=== PATIENT | female | born 1990 | race Caucasian/White ===

== ENCOUNTER 2019-10-30 03:50 | Outpatient (CLI) | payer MEDICAID, SELFPAY ==
[2019-10-30 04:05] VITALS: RESP 16; TEMP 36.5
[2019-10-30 04:07] VITALS: BP 120/76; PULSE 83
[2019-10-30 04:11] VITALS: BMI 36.1
[2019-10-30 04:29] LABS: Add Urine Microscopic? NO
[2019-10-30 04:54] LABS: Bilirubin Urine Neg (NEGATIVE); Blood Urine Neg (Negative); Glucose Urine UA Norm (Normal); Ketones Urine Negative (Negative); Leukocyte Esterase Urine Negative (Negative); Nitrate Urine Negative (Negative); Protein Urine Neg (Negative); Urine Appearance Clear (CLEAR); Urine Color Yellow (Yellow); Urobilinogen Urine 1 mg/dL (Negative); pH Urine 5 (5-7)
[2019-10-30 05:05] VITALS: TEMP 36.4
[2019-10-30 05:07] VITALS: BP 111/79; PULSE 75
== END 2019-10-30 05:30 | disposition home or self-care (01) ==
LOC: OPOB 03:58 → OBGYN 05:16 → OPOB 08:00
PROVIDERS: Family Provider Family Medicine; Visit Provider Family Medicine
DX: O26.899 Other specified pregnancy related conditions, unspecified trimester (principal); Z3A.00 Weeks of gestation of pregnancy not specified; R10.9 Unspecified abdominal pain
CPT/HCPCS: 81003; 99211

== ENCOUNTER 2019-11-07 14:35 | Outpatient (CLI) | payer MEDICAID, SELFPAY ==
[2019-11-07 14:35] VITALS: BMI 35.9
--- NOTE | 2019-11-07 14:35 | US_ITS ---
WS: [id number] OB ultrasound for biophysical profile, 11/07/2019 Clinical Data: DECREASED MOVEMENT/ PT FALL Comparison: OB ultrasound, 08/07/2019 Findings: There is a single intrauterine in the vertex presentation. The heart rate is 144 beat s per minute. The placenta is posterior. The biophysical profile is 8 of 8 with normal scores for breathing, movement, posture and tone and amniotic fluid volume. US/US OB lmt w/ BPP wo NST Impression: 1. Single intrauterine in vertex presentation. 2. Biophysical profile 8 of 8. 3. heart rate 144 beats per minute.
[2019-11-07 15:14] VITALS: RESP 20; TEMP 36.9
--- NOTE | 2019-11-07 15:48 | PC.NURSE ---
US at bedside at this time
[2019-11-07 16:09] VITALS: BP 112/78; PULSE 69
[2019-11-07 16:36] LABS: Alanine Aminotransferase 39 U/L (0-33); Albumin Level 3.3 g/dL (3.5-5.2); Alkaline Phosphatase 157 IU/L (35-105); Anion Gap 19.9 (5-19); Aspartate Amino Transferase 27 U/L (0-32); Blood Urea Nitrogen 6 mg/dL (6-20); Calcium 9.7 mg/dL (8.5-10.5); Carbon Dioxide 19 mmol/L (22-29); Chloride 102 mmol/L (98-107); Globulin 3.6 g/dL (1.3-4.6); Glomerular Filtration Rate 116.6 mL/min (90-130); Glucose 113 mg/dL (65-115); Potassium 3.9 mmol/L (3.5-5.1); Sodium 137 mmol/L (136-145); Total Bilirubin 0.6 mg/dL (0.15-1.2); Total Protein 6.9 g/dL (6.6-8.7); Uric Acid 4.8 mg/dL (2.4-5.7)
[2019-11-07 16:56] LABS: Basophils % 0.3 %; Eosinophils # 0.1 10^3/uL (0.0-0.8); Eosinophils % 0.6 %; Hematocrit 33.3 % (37.0-47.0); Hemoglobin 10.8 g/dL (11.5-15.3); Lymphocytes # 1.9 10^3/uL (0.8-4.8); Lymphocytes % 22.5 %; Mean Corpuscular HGB Conc 32.4 g/dL (30.0-36.0); Mean Corpuscular Hemoglobin 29.5 pg (28.0-34.0); Mean Platelet Volume 10.5 fL (7.4-10.4); Monocytes # 0.7 10^3/uL (0.2-0.9); Monocytes % 8.5 %; Neutrophils # 5.8 10^3/uL (1.8-7.7); Neutrophils % 67.2 %; Nucleated Red Blood Cells % 0 %; Platelet Count 290 10^3/cmm (130-400); Red Blood Count 3.66 10^6/uL (4.1-5.3); White Blood Count 8.6 10^3/uL (4.0-10.0)
[2019-11-07 17:55] LABS: Urine Creatinine 134 mg/dL (28-217)
[2019-11-07 17:56] LABS: UPRO/UCREAT Ratio 0.21 mg/mg CR; Urine Protein Random 28 mg/dL
== END 2019-11-07 18:20 | disposition home or self-care (01) ==
LOC: OPOB 14:54 → OBGYN 18:14 → OPOB 11-08 07:48
PROVIDERS: Family Provider Family Medicine; Visit Provider Family Medicine
DX: O36.8190 Decreased fetal movements, unspecified trimester, not applicable or unspecified (principal); Z3A.00 Weeks of gestation of pregnancy not specified; S39.91XA Unspecified injury of abdomen, initial encounter
CPT/HCPCS: 36415; 59025; 76815; 76819; 80053; 82570; 84156; 84550; 85025; 99211; A9270

== ENCOUNTER 2019-11-14 12:23 | Outpatient (CLI) | payer MEDICAID, SELFPAY ==
--- NOTE | 2019-11-14 12:41 | US_ITS ---
WS: [id number] US OB lmt w/ BPP wo NST REASON FOR EXAM: headaches FINDINGS: Single fetus is noted in the cephalic presentation. heart rate 1 36 bpm. Good motion is seen. Amniotic fluid indices within normal limits. head measured 9.11 cm 37 weeks gestation Head circumference 32.70 cm 37 weeks 1 day gestation Femoral length 7.29 cm 37 weeks 2 days gestation Abdominal circumference 13.71 cm 37 weeks 4 days gestation. weight 32.02 g (7 lbs. 1 oz.) US/US OB lmt w/ BPP wo NST IMPRESSION: Utilizing Hadlock criteria the fetuses 39 weeks 2 days gestation weight 7 lbs. 1 oz. Viability of the fetus is seen.
[2019-11-14 12:45] VITALS: BP 122/76; PULSE 86
[2019-11-14 12:52] VITALS: BMI 35.9
[2019-11-14 13:15] VITALS: BP 122/83; PULSE 107
[2019-11-14 13:25] VITALS: BP 121/82; PULSE 97
[2019-11-14 13:35] VITALS: BP 127/81; PULSE 90
[2019-11-14 13:40] VITALS: RESP 16; TEMP 36.7
[2019-11-14 13:43] VITALS: BP 127/81; PULSE 90; RESP 16; TEMP 36.7
== END 2019-11-14 13:43 | disposition home or self-care (01) ==
LOC: OPOB 12:38 → OBGYN 13:40 → OPMS 11-17 07:36
PROVIDERS: Family Provider Family Medicine; Visit Provider Family Medicine
DX: O26.899 Other specified pregnancy related conditions, unspecified trimester (principal); Z3A.00 Weeks of gestation of pregnancy not specified; R51 Headache
CPT/HCPCS: 59025; 76815; 76819; 99211

== ENCOUNTER 2019-11-17 11:19 | Outpatient (CLI) | payer MEDICAID, SELFPAY ==
[2019-11-17 11:46] VITALS: BP 118/83; PULSE 80; RESP 16; TEMP 36.6
[2019-11-17 11:48] VITALS: BMI 36.1
[2019-11-17 12:36] VITALS: BP 0/0; BP 119/86; BP 125/81; BP 125/85; PULSE 68; PULSE 72; PULSE 81
== END 2019-11-17 12:28 | disposition home or self-care (01) ==
PROVIDERS: Family Provider Family Medicine; Visit Provider Family Medicine
DX: O24.419 Gestational diabetes mellitus in pregnancy, unspecified control (principal); Z3A.00 Weeks of gestation of pregnancy not specified
CPT/HCPCS: 59025; 99211

== ENCOUNTER 2019-11-21 15:30 | Outpatient (CLI) | payer MEDICAID, SELFPAY ==
[2019-11-21] VITALS (7 sets, daily range): BP systolic 111–140; BP diastolic 75–86; PULSE 74–91; RESP 17; TEMP 36.5; BMI 36.3
--- NOTE | 2019-11-21 15:43 | US_ITS ---
WS: [id number] BIOPHYSICAL PROFILE AND LIMITED OB. HISTORY: hypertension COMPARISON: 11/14/2019 Presentation: Vertex. Cervix: Poorly visualized. Placenta: Posterior, no previa or abruption. Grade: 1 HEART: FHR of 133BPM. Biophysical profile: Parameters are as follows: Breathin Movement: 2 Tone: 2 Fluid volume: 2 Amniotic fluid index 16.2 cm. At the 50th percentile. Largest vertical pocket of amniotic fluid 7.4 c m. 1. Biophysical profile score: 8/8. 2. Normal amniotic fluid index. 3. Posterior grade 1 placenta. US/US OB lmt w/ BPP wo NST IMPRESSION:
[2019-11-21 16:16] LABS: Basophils % 0.2 %; Eosinophils % 0.4 %; Hemoglobin 11.3 g/dL (11.5-15.3); Lymphocytes # 1.9 10^3/uL (0.8-4.8); Mean Corpuscular HGB Conc 32.3 g/dL (30.0-36.0); Mean Corpuscular Hemoglobin 29.1 pg (28.0-34.0); Mean Corpuscular Volume 90.2 fL (81-99); Mean Platelet Volume 10.8 fL (7.4-10.4); Monocytes # 0.8 10^3/uL (0.2-0.9); Monocytes % 9.4 %; Neutrophils # 5.3 10^3/uL (1.8-7.7); Neutrophils % 65.5 %; Nucleated Red Blood Cells % 0 %; Platelet Count 266 10^3/cmm (130-400); Red Blood Count 3.88 10^6/uL (4.1-5.3); Red Cell Distribution Width 14.1 % (12.1-15.1); White Blood Count 8.1 10^3/uL (4.0-10.0)
[2019-11-21 16:31] LABS: Alanine Aminotransferase 49 U/L (0-33); Albumin Level 3.6 g/dL (3.5-5.2); Alkaline Phosphatase 167 IU/L (35-105); Anion Gap 17.9 (5-19); Aspartate Amino Transferase 36 U/L (0-32); Blood Urea Nitrogen 9 mg/dL (6-20); Calcium 9.9 mg/dL (8.5-10.5); Carbon Dioxide 20 mmol/L (22-29); Chloride 101 mmol/L (98-107); Globulin 3.1 g/dL (1.3-4.6); Glucose 100 mg/dL (65-115); Potassium 3.9 mmol/L (3.5-5.1); Sodium 135 mmol/L (136-145); Total Bilirubin 0.7 mg/dL (0.15-1.2); Total Protein 6.7 g/dL (6.6-8.7); Uric Acid 6.4 mg/dL (2.4-5.7)
== END 2019-11-21 17:25 | disposition home or self-care (01) ==
LOC: OPOB 15:38 → OBGYN 17:15 → OPOB 11-22 08:34
PROVIDERS: Family Provider Family Medicine; Visit Provider Family Medicine
DX: O16.9 Unspecified maternal hypertension, unspecified trimester (principal); Z3A.00 Weeks of gestation of pregnancy not specified
CPT/HCPCS: 36415; 59025; 76815; 76819; 80053; 84550; 85025; 99211

== ENCOUNTER 2019-11-24 09:37 | Inpatient (IN) | payer MEDICAID, SELFPAY ==
[2019-11-24] VITALS (61 sets, daily range): BP systolic 0–160; BP diastolic 0–105; PULSE 52–94; RESP 15–18; TEMP 36.3–36.8; O2SAT 95–99; BMI 36.1
[2019-11-24] MEDS: lactated ringers 1,000 ML 999 ML IV ×2 (09:05→12:56)
[2019-11-24 10:06] LABS: Basophils % 0.2 %; Eosinophils % 0.4 %; Hematocrit 36.2 % (37.0-47.0); Hemoglobin 11.6 g/dL (11.5-15.3); Lymphocytes % 22.1 %; Mean Corpuscular Hemoglobin 27.8 pg (28.0-34.0); Mean Corpuscular Volume 86.8 fL (81-99); Mean Platelet Volume 12.1 fL (7.4-10.4); Monocytes # 0.7 10^3/uL (0.2-0.9); Monocytes % 7.6 %; Neutrophils # 6.2 10^3/uL (1.8-7.7); Neutrophils % 69.3 %; Nucleated Red Blood Cells % 0 %; Platelet Count 235 10^3/cmm (130-400); Red Blood Count 4.17 10^6/uL (4.1-5.3); White Blood Count 8.9 10^3/uL (4.0-10.0)
[2019-11-24 10:23] LABS: Alanine Aminotransferase 38 U/L (0-33); Albumin Level 3.2 g/dL (3.5-5.2); Alkaline Phosphatase 156 IU/L (35-105); Anion Gap 17.1 (5-19); Blood Urea Nitrogen 6 mg/dL (6-20); Calcium 10.1 mg/dL (8.5-10.5); Carbon Dioxide 20 mmol/L (22-29); Chloride 102 mmol/L (98-107); Globulin 3.9 g/dL (1.3-4.6); Glomerular Filtration Rate 143.9 mL/min (90-130); Glucose 83 mg/dL (65-115); Potassium 4.1 mmol/L (3.5-5.1); Sodium 135 mmol/L (136-145); Total Bilirubin 0.6 mg/dL (0.15-1.2); Total Protein 7.1 g/dL (6.6-8.7); Uric Acid 5.2 mg/dL (2.4-5.7)
[2019-11-24] MEDS: lactated ringers 1,000 ML 125 ML IV (10:25)
[2019-11-24 10:29] LABS: Aspartate Amino Transferase 33 U/L (0-32)
[2019-11-24 10:36] LABS: Add Urine Microscopic? YES; Bilirubin Urine Neg (NEGATIVE); Blood Urine 2+ (Negative); Glucose Urine UA Norm (Normal); Ketones Urine Negative (Negative); Leukocyte Esterase Urine Negative (Negative); Nitrate Urine Negative (Negative); Protein Urine Neg (Negative); Specific Gravity, Urine 1.015 (1.005-1.030); Urine Appearance SL Hazy (CLEAR); Urine Color Yellow (Yellow); Urobilinogen Urine Norm (Negative); pH Urine 6.5 (5-7)
[2019-11-24 10:40] LABS: RBC Urine 0-4 /hpf (0-2)
[2019-11-24] MEDS: butorphanol 2 mg/mL SDV 1 mL 1 MG IVP (10:40)
[2019-11-24 10:41] LABS: Bacteria Urine 1+
[2019-11-24 10:42] LABS: Add Urine Culture? No
[2019-11-24 10:52] LABS: Urine Creatinine 89 mg/dL (28-217); Urine Protein Random 15 mg/dL
[2019-11-24 10:58] LABS: UPRO/UCREAT Ratio 0.17 mg/mg CR
--- NOTE | 2019-11-24 11:13 | PC.NURSE ---
[id number] Dunlap with anesthesia> Dr. Dunlap informed of Dr. Brower desires to perform a ceserean at 1300. Dr. Dunlap states that will be fine.
--- NOTE | 2019-11-24 12:34 | ANES.PREANE2 ---
Pre-Anesthetic Assessment Pre-Anesthetic Assessment: Height/Weight: Height 1.68 m Weight 101.605 kg Temp Pulse Resp BP 98.1 F 60 16 147/83 11/24/19 08:56 11/24/19 12:32 11/24/19 11:40 11/24/19 12:32 Preop Diagnosis: IUP Proposed Procedure: C/section (secondary) Familial anesthetic complications: none Was Beta Jossy taken within 24 hours: N/A Last intake: Intake Last Liquid Date 11/24/19 Last Liquid Time 01:00 Last Solid Date 11/23/19 Last Solid Time 18:00 Social: Social History: No alcohol and No tobacco Airway: Submandibular: WNL Cervical ROM: WNL MP: 2 History/ROS: No significant history except as noted Pulmonary: Pulmonary: Asthma (as a child) CV/HEM: CV/HEM: HTN (pre-eclampsia) : : None reported Hepatic: Hepatic: None reported GI: GI: GERD Metabolic: Metabolic: Thyroid Anesthetic Plan: ASA status: 2E Anesthesia: Anesthesia Evaluation and Regional (specify below) (spinal) Risk of > 500 ml blood loss (7ml/kg in children): Yes, adequate IV access and fluids planned Meds/Allergies Current Medications: Current Medications Generic Name Dose Route Start Last Admin Trade Name Freq PRN Reason Stop Dose Admin Butorphanol Tartra te 1 mg 11/24/19 10:33 11/24/19 10:40 Stadol IVP 1 mg DIRECTED PRN Administration PAIN Lactated Ringer's 1,000 mls @ 125 m ls/hr 11/24/19 10:00 11/24/19 10:25 Lactated Ringers IV 125 mls/hr .Q8H RONIT Administration PFSH Anesthesia Female Reproductive History: : 3 Data Anesthesia CBC & Chem 7: 11/24/19 08:50 11/24/19 08:50 Other Labs: Laboratory Results - last 48 hr 11/24/19 11/24/19 11/24/19 08:30 08:30 08:50 WBC 8.9 RBC 4.17 Hgb 11.6 Hct 36.2 L MCV 86.8 MCH 27.8 L MCHC 32.0 RDW 14.0 Plt Count 235 MPV 12.1 H Neut % (Auto) 69.3 Lymph % (Auto) 22.1 [place] % (Auto) 7.6 Eos % (Auto) 0.4 Baso % (Auto) 0.2 Neut # (Auto) 6.2 Lymph # (Auto) 2.0 [place] # (Auto) 0.7 Eos # (Auto) 0.0 Baso # (Auto) 0.0 Nucleated RBC % (auto) 0 Nucleated RBCs # 0.0 Sodium Potassium Chloride Carbon Dioxide Anion Gap BUN Creatinine GFR Calculation Glucose Uric Acid Calcium Total Bilirubin AST ALT Alkaline Phosphatase Total Protein Albumin Globulin Urine Color Yellow Urine Appearance Sl hazy Urine pH 6.5 Ur Specific [place] 1.015 Urine Protein Neg Urine Glucose (UA) Norm Urine Ketones Negative Urine Blood 2+ H Urine Nitrate Negative Urine Bilirubin Neg Urine Urobilinogen Norm Ur Leukocyte Esterase Negative Urine RBC 0-4 H Urine WBC 5-10 H Ur Squamous Epith Cells 5-10 H Urine Bacteria 1+ H U Random Total Protein 15 Urine Creatinine 89 Protein/Creatinin Ratio 0.17 11/24/19 08:50 WBC RBC Hgb Hct MCV MCH MCHC RDW Plt Count MPV Neut % (Auto) Lymph % (Auto) [place] % (Auto) Eos % (Auto) Baso % (Auto) Neut # (Auto) Lymph # (Auto) [place] # (Auto) Eos # (Auto) Baso # (Auto) Nucleated RBC % (auto) Nucleated RBCs # Sodium 135 L Potassium 4.1 Chloride 102 Carbon Dioxide 20 L Anion Gap 17.1 BUN 6 Creatinine 0.5 GFR Calculation 143.9 H Glucose 83 Uric Acid 5.2 Calcium 10.1 Total Bilirubin 0.6 AST 33 H ALT 38 H Alkaline Phosphatase 156 H Total Protein 7.1 Albumin 3.2 L Globulin 3.9 Urine Color Urine Appearance Urine pH Ur Specific [place] Urine Protein Urine Glucose (UA) Urine Ketones Urine Blood Urine Nitrate Urine Bilirubin Urine Urobilinogen Ur Leukocyte Esterase Urine RBC Urine WBC Ur Squamous Epith Cells Urine Bacteria U Random Total Protein Urine Creatinine Protein/Creatinin Ratio Cardiac Studies: No Data to Display
[2019-11-24] MEDS: famotidine 20 mg/2 mL INJ IVP (12:57)
[2019-11-24] MEDS: metoclopramide 5 mg/mL SDV 2 mL 10 MG IVP (12:57)
[2019-11-24] MEDS: citric acid-sodium citrate 30 mL UDC PO (12:58)
[2019-11-24] MEDS: clindamycin 900 MG/50 ML PREMIX 100 MG IV (13:02)
--- NOTE | 2019-11-24 13:08 | PM.HP ---
Providers/Chief Complaint Admitting Physician: Jaime Brower MD Chief Complaint: Contractions History of Present Illness Nicolasa Ny is a 29 year old G3, P1 at 38.5 weeks gestation by LMP consistent with 6-week ultrasound. Her is complicated by history of hemorrhage, prior low-transverse section, Rh-, hypothyroidism, anxiety, history of hyperemesis gravidarum, first trimester bleeding, elevated 1 hour GTT with normal 3-hour GTT, now with preeclampsia without severe features The patient presented to labor and delivery triage due to worsening contractions. She has been having overnight and stated that she was feeling them every 1 to 2 minutes. They were becoming more painful so she presented to labor and delivery triage for further evaluation. In triage she was found to be having contractions every 7 to 8 minutes, with more irritability in between these. She was found to have blood pressures in the 140s and 150s systolic. The patient had previously had a 24-hour urine protein that was borderline at 298 on 11/10/2019. The patient has not had any elevated blood pressures until today. The patient is having mild headaches with some visual disturbances. She is also been nauseous. Because of these changes, this is most consistent with preeclampsia. For this reason she has been admitted and we will proceed with a repeat low-transverse section. The patient's cervix is closed upon admission. The patient denies any chest pains, shortness of breath, fevers, cough, sore throat, diarrhea, constipation, dysuria, leakage of fluid and vaginal bleeding. Medications/Allergies Allergies Allergy/AdvReac Type Severity Reaction Status Date / Time acetaminophen [From Vicodin] Allergy ADR-Nausea Verified 11/24/19 11:26 cefaclor [From Ceclor] Allergy ALGY-Rash Verified 11/14/19 12:56 hydrocodone [From Vicodin] Allergy ADR-Nausea Verified 11/24/19 11:26 latex Allergy ALGY-Rash Verified 10/30/19 04:21 Penicillins Allergy ALGY-Rash Verified 10/30/19 04:21 Sulfa (Sulfonamide Allergy ALGY-Rash Verified 10/30/19 04:21 Antibiotics) PFSH Acute PFSH: Surgical History (Updated 11/24/19 @ 14:57 by Jaime Brower MD) History of section Family History (Updated 11/24/19 @ 14:59 by Jaime Brower MD) Father Diabetes Hypertension Mother Thyroid disease Hypertension Female Reproductive History: : 3 Vitals/I&O/Wt Last Vital Signs Temp 98.1 F 11/24/19 08:56 Pulse 57 L 11/24/19 12:46 Resp 16 11/24/19 11:40 BP 150/86 11/24/19 12:46 11/23/19 11/24/19 11/24/19 22:59 06:59 14:59 Intake Total 1000 / 1000 Balance 1000 / 1000 Weight last 48 hrs Weight 224 lb Physical Exam Narrative: EXAM NARRATIVE: General: Alert and oriented x3 Eyes: Pupils equal round and reactive to light and accommodation Mouth: Mucous membranes moist, pharynx non-erythematous Cardiac: Regular rate and rhythm without murmurs Lungs: Clear to auscultation bilaterally without wheezes, crackles or rhonchi Abdomen: Soft, no significant tenderness outside of contractions, fundus consistent with gestational age Extremities: Trace edema in the bilateral lower extremities Neuro: Reflexes are 1+ in the bilateral lower extremities. Data : 11/24/19 08:50 11/24/19 08:50 A&P Assessment and plan (1) Intrauterine : Status: Acute Code(s): Z34.90 - Encounter for supervision of normal , unspecified, unspecified trimester (2) Rh negative status during : Status: Acute Code(s): O26.899 - Other specified related conditions, unspecified trimester; Z67.91 - Unspecified blood type, Rh negative (3) Hypothyroidism: Status: Acute Code(s): E03.9 - Hypothyroidism, unspecified Additional A&P Information The patient is showing signs of preeclampsia without severe features, however with blood pressures that are starting to increase quickly as they were normal in clinic earlier this week. Because of this we will proceed with a repeat low transverse section. The patient will be placed on IV magnesium for seizure prophylaxis. The patient has an allergy to beta lactams, so we will give her clindamycin for surgical prophylaxis. All questions were answered. The patient is in agreement with the current plan of care. Attestations Medical Necessity Statement*: The patient will be here greater than 2 midnights due to intrapartum and management of labor and delivery with complications of preeclampsia without severe features. Coding Level of Care Code Acute Ladies' Locker Room Attendant for Chg Fwd Diagnoses Intrauterine Z34.90 Rh negative status during O26.899; Z67.91 Hypothyroidism E03.9
[2019-11-24] MEDS: magnesium sulfate premix 4 GM/100 ML PREMIX IV (13:30)
[2019-11-24] MEDS: magnesium sulfate premix 20 GM/500 ML BAG IV (13:55)
[2019-11-24 14:55] LABS: Magnesium 3.8 mg/dL (1.7-2.3)
--- NOTE | 2019-11-24 15:00 | P.OP_ITS ---
Operative Report Date of procedure: November 24, 2019 Pre-op Diagnosis: Repeat low transverse section Pre-op Diagnosis: 1. Intrauterine at 38.5 weeks gestation 2. History of low transverse section 3. Rh- 4. Hypothyroidism 5. Anxiety 6. Elevated 1 hour GTT with normal 3-hour GTT 7. Preeclampsia without severe features Nicolasa Ny is a 29 year old G3, P1 at 38.5 weeks gestation by LMP consistent with 6-week ultrasound. Her is complicated by history of hemorrhage, prior low-transverse section, Rh-, hypothyroidism, anxiety, history of hyperemesis gravidarum, first trimester bleeding, elevated 1 hour GTT with normal 3-hour GTT, now with preeclampsia without severe features Post-op Diagnosis: 1. Intrauterine status post repeat low transverse section at 38.5 weeks gestation 2. History of low transverse section 3. Rh- 4. Hypothyroidism 5. Anxiety 6. Elevated 1 hour GTT with normal 3-hour GTT 7. Preeclampsia without severe features 8. Delivery of healthy female weighing 8 pounds 8 ounces with Apgars of 9 and 9 9. Intact placenta with central umbilical cord insertion site. Post-op Findings: 1. Delivery of healthy infant female weighing 8 pounds 8 ounces with Apgars of 9 and 9 2. Intact placenta with central umbilical cord insertion site Procedure Done: Repeat low transverse section Specimens removed/disposition: Placenta discarded Pathology: none sent Surgeon: Jaime Brower MD Anesthesia: Epidural (Spinal) Estimated blood loss (mL): 700 Urine output (mL): 1,000 Complications: None Condition: stable Brief History: The patient presented to labor and delivery triage due to worsening contractions. She has been having contractions overnight and stated that she was feeling them every 1 to 2 minutes. They were becoming more painful so she presented to labor and delivery triage for further evaluation. In triage she was found to be having contractions every 7 to 8 minutes, with more irritability in between these. She was found to have blood pressures in the 140s and 150s systolic. The patient had previously had a 24-hour urine protein that was borderline at 298 on 11/10/2019. The patient has not had any elevated blood pressures until today. The patient is having mild headaches with some visual disturbances. She is also been nauseous. Because of these changes, this is most consistent with preeclampsia. For this reason she has been admitted and we will proceed with a repeat low-transverse section. The patient's cervix is closed upon admission. Procedure: After informed consent was obtained, the patient was taken to the operating room and the patient was prepped and draped in normal sterile fashion in a dorsal supine position. A spinal epidural was placed and adequate anesthesia was confirmed. At 1325 on 11/24/2019, a Pfannenstiel skin incision was made and carried through to the underlying layer of fascia using a scalpel. The fascial incision was then extended laterally using curved Mayos. The fascia was then grasped with [place] clamps and the underlying rectus muscles were disse cted off taking care to avoid injury to the underlying tissues. The peritoneum was entered bluntly with one digit. It was then bluntly. The bladder blade was placed and the vesicouterine peritoneum was well below the lower uterine segment of the uterus. The uterine incision was made in the lower uterine segment in a transverse fashion with the scalpel at 1329. The amniotic membrane was entered bluntly and a large amount of clear fluid was noted. The 's head delivered atraumatically without difficulty at 1330 on 11/24/2019. There was no nuchal cord. The mouth and nose were suctioned. The rest of the infant delivered without difficulty. The was crying immediately upon delivery. The cord was clamped and cut and the infant was handed to the awaiting pediatric nurses. The placenta was then manually expressed. The uterus was then exteriorized from the abdomen and a wet lap was used to clear the uterus of clots and debris. The bladder blade was reinserted and the uterine incision was closed using 0 chromic in a running locking fashion. A second layer of the same suture was used in the same manner. Excellent hemostasis was obtained. Next the posterior cul-de-sac was inspected and was cleared of any blood. The uterus was then placed back into the abdomen. The gutters were cleared of any further clots and debris and the uterine incision was again inspected and hemostasis was noted. The subfascial tissue was inspected for hemostasis. The peritoneum was re-approximated using 2-0 plain in a running fashion. The fascia was then re-approximated using 0 Vicryl in a running fashion. The subcutaneous tissue was inspected for hemostasis. Naomi's fascia was then re-approximated using 3-0 plain in a running fashion. Good hemostasis was noted. The subcutaneous tissue was then re-approximated using a subcuticular stitch with 4- 0 Vicryl. Steri-Strips were then placed to re-approximate the skin layer. The patient tolerated the procedure well and was recovered in stable condition. Estimated blood loss was 700 mL. Urine in the Atkins catheter was clear. Currently both the mother and infant are doing very well.
[2019-11-24] MEDS: dextrose 5%-lactated ringers 1,000 ML 125 ML IV ×2 (15:41→23:07)
[2019-11-24] MEDS: ferrous sulfate EC 325 mg Tablet PO (18:33)
[2019-11-24] MEDS: docusate sodium 100 mg Capsule PO (18:33)
[2019-11-24] MEDS: famotidine 20 mg Tablet PO (18:33)
[2019-11-24] MEDS: lanolin oint 7 gm 1 APPLIC TOPICAL (18:34)
[2019-11-25] VITALS (18 sets, daily range): BP systolic 98–121; BP diastolic 62–79; PULSE 74–90; RESP 15–18; TEMP 36.6–36.9; O2SAT 95–98
[2019-11-25 03:57] LABS: Hematocrit 32.4 % (37.0-47.0); Hemoglobin 10.5 g/dL (11.5-15.3); Mean Corpuscular HGB Conc 32.4 g/dL (30.0-36.0); Mean Corpuscular Hemoglobin 29.1 pg (28.0-34.0); Mean Corpuscular Volume 89.8 fL (81-99); Mean Platelet Volume 10.8 fL (7.4-10.4); Platelet Count 225 10^3/cmm (130-400); Red Blood Count 3.61 10^6/uL (4.1-5.3); Red Cell Distribution Width 14.2 % (12.1-15.1); White Blood Count 10.6 10^3/uL (4.0-10.0)
[2019-11-25] MEDS: magnesium sulfate premix 20 GM/500 ML BAG IV (07:52)
[2019-11-25] MEDS: dextrose 5%-lactated ringers 1,000 ML 100 ML IV (07:53)
[2019-11-25] MEDS: ferrous sulfate EC 325 mg Tablet PO (07:54)
[2019-11-25] MEDS: prenatal vitamin Capsule 1 CAP PO (07:54)
--- NOTE | 2019-11-25 08:30 | PM.PN ---
Subjective Subjective: Interval history: Patient is doing well at this time. She is currently on IV magnesium 1 g/h. She is feeling less nauseous, her headache is improving, her pain is doing well with current meds. Her bleeding has been decreasing well. The patient feels significantly better compared to yesterday. Vitals/I&O/Wt Last Vital Signs Temp 98 F 11/25/19 08:00 Pulse 82 11/25/19 08:00 Resp 16 11/25/19 08:00 BP 105/69 11/25/19 08:00 Pulse Ox 97 11/25/19 08:00 11/24/19 11/25/19 11/25/19 22:59 06:59 14:59 Intake Total 1757.082 / 4872.082 1467.082 / 6339.164 146.251 / 146.251 Output Total 2730 / 2805 1630 / 4435 350 / 350 Balance -972.918 / 2067.082 -162.918 / 1904.164 -203.749 / -203.749 Weight last 48 hrs Weight 224 lb Physical Exam Narrative: EXAM NARRATIVE: General: Alert and oriented x3 Cardiac: Regular rate and rhythm without murmurs Lungs: Clear to auscultation bilaterally without wheezes, crackles or rhonchi Abdomen: Soft, mild diffuse tenderness. Fundus is firm and 1 cm below the umbilicus. The incision is clean and dry without signs of infection or dehiscence. Extremities: Trace edema in the bilateral lower extremities. Bilateral lower extremity DTRs are brisk. Urinary Catheter Management^: Latex Free: Cath Placed During This Visit: yes Urethral Indwelling: Yes Reason for Continuing Indwelling Catheter: Accurate Measurement of Urinary Output in Critically Ill Patients Urinary Catheter Date of Insertion: 11/24/19 Urinary Catheter Time of Insertion: 13:15 Data : 11/25/19 03:23 11/24/19 08:50 A&P Additional A&P Information The patient is doing well at this time. She is currently on 1 g/h of IV magnesium. She is feeling much better and her blood pressures have decreased well. Her urine output has been very good as well. We will continue the IV magnesium for 24 hours and if she is continuing to do well, we will plan to discontinue the magnesium at that time. The patient is currently doing well in terms of pain. We can proceed with current orders. The patient's bleeding is decreasing well. She is tolerating liquids by mouth. We will advance her diet to a full diet after she is off the magnesium. All questions have been answered. Routine post care has been discussed. We will follow to see how she does over the next 24 hours and possibly discharge home at 48 hours if she continues to do well. Attestations Medical Necessity Statement*: The patient will be here for greater than 2 midnights due to routine intrapartum and management of section with preeclampsia without severe features. Coding Level of Care Code Acute Director Of Regulatory Affairs for Carlene Castro
[2019-11-25] MEDS: famotidine 20 mg Tablet PO ×2 (09:15→17:43)
[2019-11-25] MEDS: thyroid 60 mg Tablet PO (09:15)
[2019-11-25] MEDS: docusate sodium 100 mg Capsule PO ×2 (09:15→17:43)
[2019-11-25 12:54] LABS: Magnesium Level (OB Only) 3.8 mg/dL (5.0-7.5)
--- NOTE | 2019-11-25 12:57 | PC.NURSE ---
Received report from Genoveva Peralta RN at [address] Brower gave her orders not to call with magnesium level unless it is over 7. Robina Panda RN
[2019-11-25] MEDS: oxyCODONE-APAP 5-325 mg Tablet PO (21:27)
[2019-11-26 04:46] VITALS: BP 101/66; PULSE 63; RESP 18; O2SAT 96
[2019-11-26] MEDS: thyroid 60 mg Tablet PO (08:47)
[2019-11-26] MEDS: prenatal vitamin Capsule 1 CAP PO (08:47)
[2019-11-26] MEDS: docusate sodium 100 mg Capsule PO (08:47)
[2019-11-26] MEDS: famotidine 20 mg Tablet PO (08:47)
[2019-11-26 10:30] VITALS: BP 129/76; PULSE 86; RESP 18; TEMP 36.7; O2SAT 96
--- NOTE | 2019-11-26 11:11 | PM.DCS ---
Discharge Providers Date of Admission: 11/24/19 09:37 Date of Discharge: November 26, 2019 Attending Provider at Admission: Jaime Brower MD Attending Provider at Discharge: Jaime Brower MD Diagnoses at Discharge Discharge Diagnosis (1) Intrauterine : Status: Acute (2) Rh negative status during : Status: Acute (3) Hypothyroidism: Status: Acute Other Information Additional DC diagnoses/information: 1. Intrauterine status post repeat low transverse section at 38.5 weeks gestation 2. History of low transverse section 3. Rh- 4. Hypothyroidism 5. Anxiety 6. Elevated 1 hour GTT with normal 3-hour GTT 7. Preeclampsia without severe features 8. Delivery of healthy infant female weighing 8 pounds 8 ounces with Apgars of 9 and 9 9. Intact placenta with central umbilical cord insertion site. Reason for Visit Reason for Visit: Reason For Visit: Contractions Hospital Course Hospital Course: The patient presented to labor and delivery triage due to worsening contractions. She has been having contractions overnight and stated that she was feeling them every 1 to 2 minutes. They were becoming more painful so she presented to labor and delivery triage for further evaluation. In triage she was found to be having contractions every 7 to 8 minutes, with more irritability in between these. She was found to have blood pressures in the 140s and 150s systolic. The patient had previously had a 24-hour urine protein that was borderline at 298 on 11/10/2019. The patient had not had any elevated blood pressures until the day of admission. The patient was having mild headaches with some visual disturbances. She was also nauseous. Because of these changes, this is most consistent with preeclampsia. For this reason she was admitted and we proceeded with a repeat low-transverse section. The patient's cervix was closed upon admission. The patient had a repeat low transverse section and had no complications. She was started on IV magnesium and continued with this for 24 hours. The patient did not have any concerning blood pressures during this timeframe. The patient's symptoms gradually improved after delivery and currently she denies any nausea, vomiting, headaches, visual disturbances. She is ambulating, voiding, passing gas and tolerating food by mouth. Her pain is well controlled with current medications. Physical Exam Narrative: EXAM NARRATIVE: General: Alert and oriented x3 Cardiac: Regular rate and rhythm without murmurs Lungs: Clear to auscultation bilaterally without wheezes, crackles or rhonchi Abdomen: Soft, mild diffuse tenderness with moderate tenderness over the uterus. Fundus is firm and 2 cm below the umbilicus. Incision is clean and dry without signs of infection or dehiscence. Extremities: +1 pitting edema Urinary Catheter Management^: Latex Free: Cath Placed During This Visit: yes, but has since been removed by the nurse Urethral Indwelling: Yes Reason for Continuing Indwelling Catheter: Accurate Measurement of Urinary Output in Critically Ill Patients Urinary Catheter Date of Insertion: 11/24/19 Urinary Catheter Time of Insertion: 13:15 Date Urinary Catheter Removed: 11/25/19 Time Urinary Catheter Discontinued: 15:30 Discharge Data Data Completed and Pending: Labs from last 24 hours 11/25/19 12:22 Magnesium 3.8 L* Vitals: Last Vital Signs Temp 98.1 F 11/26/19 10:30 Pulse 86 11/26/19 10:30 Resp 18 11/26/19 10:30 BP 129/76 11/26/19 10:30 Pulse Ox 96 11/26/19 10:30 Discharge Plan Discharge Patient Disposition: Home, Self-Care Condition: Good Prescriptions: New oxycodone-acetaminophen 5-325 mg Tablet 1 tab PO Q6H PRN (Reason: Moderate To Severe Pain) Qty: 15 RF: 0 ibuprofen 800 mg Tablet 800 mg PO TID Qty: 60 RF: 0 ferrous sulfate 325 mg (65 mg iron) Tablet,Delayed Release (Dr/Ec) 325 mg PO BIDWM 15 Days Qty: 30 RF: 0 Continued Vitamin 27 mg iron- 800 mcg Tablet 1 tab PO DAILY RF: 0 famotidine [Pepcid] 20 mg Tablet 20 mg PO BID RF: 0 thyroid (pork) [CARGO CHECKER Thyroid] 60 mg Tablet 60 mg PO DAILY RF: 0 Discharge Orders: Discharge Order (Routine); Ordered 11/26/19 Ordered By: Jaime Brower Referrals: Jaime Brower MD [Family Provider] - 11/28/19 (Please schedule an appointment for this Wednesday as well as an appointment for 2 weeks and 6 weeks .) Discharge Diet: Regular Discharge Activity: Limit activity as instructed Activity Restrictions/Additional Instructions: Do not lift anything heavier than your in the car seat for the first 3 weeks, then gradually increase. If you have any concern that there is infection in your incision site, please seek immediate medical care. Nothing per vagina for 6 weeks. No baths or swimming for 6 weeks. Okay to shower. Discharge Attestations Time Spent in Discharge Care*: greater than 30 min Specific Discharge Activities: Specific discharge activities: educating patient, documenting/other paperwork and evaluating patient/reviewing data Quality Metrics Clinical Quality Measures During this hospital stay, did patient experience: None Coding Level of Care Code Acute Hydrometallurgical Engineer for Chg Fwd Diagnoses Intrauterine Z34.90 Rh negative status during O26.899; Z67.91 Hypothyroidism E03.9
[2019-11-26 14:25] VITALS: BP 109/72; PULSE 67; RESP 18; TEMP 36.8; O2SAT 98
== END 2019-11-26 15:50 | disposition home or self-care (01) | DRG 788 ==
LOC: OBGYN 11-26 11:11 → OPOB 11-27 07:53
PROVIDERS: Admitting Provider Family Medicine; Family Provider Family Medicine; Visit Provider Family Medicine
PROC: 10D00Z1 Extraction of Products of Conception, Low, Open Approach (ICD-10-PCS; CPT 59514; principal; 2019-11-24 13:25)
DX: O14.04 Mild to moderate pre-eclampsia, complicating childbirth (principal); O34.211 Maternal care for low transverse scar from previous cesarean delivery; N85.8 Other specified noninflammatory disorders of uterus; Z3A.38 38 weeks gestation of pregnancy; Z37.0 Single live birth; O99.284 Endocrine, nutritional and metabolic diseases complicating childbirth; E03.9 Hypothyroidism, unspecified; O99.344 Other mental disorders complicating childbirth; F41.9 Anxiety disorder, unspecified
CPT/HCPCS: 12345; 36415; 51702; 59025; 59409; 80053; 81001; 82570; 83735; 84156; 84550; 85025; 85027; 96374; 96375; 99211; J0595; J2274; J2370; J2405; J2590; J2765; J3475; J3490; J7030

== ENCOUNTER 2020-01-30 15:50 | Outpatient (CLI) | payer MEDICAID, SELFPAY ==
--- NOTE | 2020-01-30 15:00 | US_ITS ---
WS: [id number] Examination: Ultrasound of the right breast HISTORY: Patient has had 3 rounds of antibiotics for mastitis with no results. Findings: At the 3:00 position is a mass defect thickened wall measures 3.54 x 3.91 x 3.63 cm. This a ppears to be a breast abscess with thickened purulent changes in the abscess. We recommend surgical consultation. US/US breast RT complete [id number] IMPRESSION: A large mass defect at the 3:00 position consistent with abscess fo rmation. The attending physician was called and the case discussed. BI-RADS 3 probably benign. Recommend surgical consultation.
== END 2020-01-30 15:51 | disposition home or self-care (01) ==
LOC: RAD 15:53
PROVIDERS: Family Provider Family Medicine; Visit Provider Registered Nurse
DX: N61.0 Mastitis without abscess (principal); N61.1 Abscess of the breast and nipple; N63.15 Unspecified lump in the right breast, overlapping quadrants
CPT/HCPCS: 76641

== ENCOUNTER 2020-01-30 19:09 | Observation (INO) | payer MEDICAID, SELFPAY ==
[2020-01-30 19:17] VITALS: BP 100/72; PULSE 96; RESP 16; TEMP 36.4; O2SAT 98; BMI 34.0
--- NOTE | 2020-01-30 20:22 | ED_ITS ---
HPI - Skin/Abscess/Foreign Bdy General: Chief complaint: General Medical Stated complaint: breast lump Time Seen by Provider: 01/30/20 20:09 Source: patient Mode of arrival: ambulatory Limitations: no limitations History of Present Illness: HPI narrative: Patient is a very nice 29-year-old female who presents to ED today with complaints of a right breast abscess. Patient states several weeks ago she was diagnosed with mastitis and has been on a round of Clindamycin and Keflex without improvement. Patient states she over that time slowly worsened. She saw her PCP today who ordered an ultrasound of her breast which showed a large abscess. She is currently on Bactrim. The PCP provider spoke to Dr. Dhaliwal who recommended patient be and admit for surgical drainage tomorrow. She has not been running fevers. MD complaint: abscess/boil Onset (ago): week(s) Tetanus up to date: yes Location: chest (R breast) Pain Consistency: constant Relieving factors: none Exacerbating factors: other (pumping/breast feeding) Context: other (breast feeding female) Associated symptoms: Reports no associated symptoms; Deny chills, fever(s), nausea or vomiting Treatments prior to arrival: antibiotic Review of Systems Const: Denies: fever, chills, body aches, fatigue or malaise Card: Denies: chest pain Resp: Denies: shortness of breath GI: Denies: abdominal pain, nausea or vomiting Musc: Denies: neck pain, back pain, extremity pain, extremity swelling, joint pain or joint swelling Skin/Breast: Reports: other (R breast abscess) Neuro: Denies: headache, numbness in extremities, weakness in extremities or changes in sensation [facility] ED PFSH: Social History Smoking and tobacco status: never smoked Physical Exam Const: COMMON NORMALS: no apparent distress, average body habitus, oriented x3, no limitations, healthy appearing, alert and well nourished Chest: OTHER: large R sided breast abscess just medial to nipple with induration and surrounding erythema Resp: COMMON NORMALS: normal respiratory effort and clear to auscultation bilaterally AUSCULTATION: clear to auscultation bilaterally Cardio: COMMON NORMALS: regular rate and regular rhythm RATE: regular rate RHYTHM: regular rhythm Neuro: COMMON NORMALS: oriented x3 SENSORIUM/ORIENTATION: Yes alert Skin: OTHER: see chest assessment Course Consultations: Consultation #1: Spoke to Dr. Dhaliwal who will admit the patient under his service to observation with plan for OR drainage tomorrow. Recommended Nafcillin IV antibiotics however pharmacy states this medication is out of stock so recommended IV clindamycin. Vital Signs: Vital signs: Vital Signs Temperature 97.5 F L 01/30/20 19:17 Pulse Rate 96 01/30/20 19:17 Respiratory Rate 18 01/30/20 21:20 Blood Pressure 100/72 01/30/20 19:17 Pulse Oximetry 98 01/30/20 21:20 MDM - Skin/Abscess/Foreign Bdy Lab Data: Labs: Lab Results 01/30/20 01/30/20 01/30/20 Range/Units 20:21 20:21 20:21 WBC 12.3 H (4.0-10.0) 10^3/ uL RBC 4.09 L (4.1-5.3) 10^6/u L Hgb 11.7 (11.5-15.3) g/dL Hct 37.1 (37.0-47.0) % MCV 90.7 (81-99) fL MCH 28.6 (28.0-34.0) pg MCHC 31.5 (30.0-36.0) g/dL RDW 14.2 (12.1-15.1) % Plt Count 404 H (130-400) 10^3/c mm MPV 9.1 (7.4-10.4) fL Neut % (Auto) 71.1 % Lymph % (Auto) 16.2 % [place] % (Auto) 8.6 % Eos % (Auto) 2.7 % Baso % (Auto) 0.4 % Neut # (Auto) 8.8 H (1.8-7.7) 10^3/u L Lymph # (Auto) 2.0 (0.8-4.8) 10^3/u L [place] # (Auto) 1.1 H (0.2-0.9) 10^3/u L Eos # (Auto) 0.3 (0.0-0.8) 10^3/u L Baso # (Auto) 0.1 (0.0-0.1) 10^3/u L Nucleated RBC % (a uto) 0 % Nucleated RBCs # 0.0 /100WBC Sodium 139 (136-145) mmol/L Potassium 4.2 (3.5-5.1) mmol/L Chloride 100 (98-107) mmol/L Carbon Dioxide 27 (22-29) mmol/L Anion Gap 16.2 (5-19) BUN 18 (6-20) mg/dL Creatinine 0.8 (0.5-0.9) mg/dL GFR Calculation 83.7 L (90-130) mL/min Glucose 87 (65-115) mg/dL Calculated Osmolal ity 284 L (285-295) mOsm/k g Lactic Acid 0.6 (0.5-2.2) mmol/L Calcium 9.7 (8.5-10.5) mg/dL Magnesium 2.4 H (1.7-2.3) mg/dL Total Bilirubin 0.2 (0.15-1.2) mg/dL AST 17 (0-32) U/L ALT 24 (0-33) U/L Alkaline Phosphata se 142 H (35-105) IU/L Total Protein 7.9 (6.6-8.7) g/dL Albumin 4.3 (3.5-5.2) g/dL Globulin 3.6 (1.3-4.6) g/dL HCG, Qual (Negative) /02/13 Range/Units 20:21 WBC (4.0-10.0) 10^3/ uL RBC (4.1-5.3) 10^6/u L Hgb (11.5-15.3) g/dL Hct (37.0-47.0) % MCV (81-99) fL MCH (28.0-34.0) pg MCHC (30.0-36.0) g/dL RDW (12.1-15.1) % Plt Count (130-400) 10^3/c mm MPV (7.4-10.4) fL Neut % (Auto) % Lymph % (Auto) % [place] % (Auto) % Eos % (Auto) % Baso % (Auto) % Neut # (Auto) (1.8-7.7) 10^3/u L Lymph # (Auto) (0.8-4.8) 10^3/u L [place] # (Auto) (0.2-0.9) 10^3/u L Eos # (Auto) (0.0-0.8) 10^3/u L Baso # (Auto) (0.0-0.1) 10^3/u L Nucleated RBC % (a uto) % Nucleated RBCs # /100WBC Sodium (136-145) mmol/L Potassium (3.5-5.1) mmol/L Chloride (98-107) mmol/L Carbon Dioxide (22-29) mmol/L Anion Gap (5-19) BUN (6-20) mg/dL Creatinine (0.5-0.9) mg/dL GFR Calculation (90-130) mL/min Glucose (65-115) mg/dL Calculated Osmolal ity (285-295) mOsm/k g Lactic Acid (0.5-2.2) mmol/L Calcium (8.5-10.5) mg/dL Magnesium (1.7-2.3) mg/dL Total Bilirubin (0.15-1.2) mg/dL AST (0-32) U/L ALT (0-33) U/L Alkaline Phosphata se (35-105) IU/L Total Protein (6.6-8.7) g/dL Albumin (3.5-5.2) g/dL Globulin (1.3-4.6) g/dL HCG, Qual Negative (Negative) Discharge Plan Discharge Patient Disposition: Admitted As Inpatient Admit Provider: Manolo Dhaliwal Clinical Impression: Abscess of right breast associated with Condition: Stable Coding Level of Care Code ED Production Drilling Machine Operator for Carlene Castro
[2020-01-30 20:41] LABS: Basophils # 0.1 10^3/uL (0.0-0.1); Basophils % 0.4 %; Eosinophils # 0.3 10^3/uL (0.0-0.8); Eosinophils % 2.7 %; Hematocrit 37.1 % (37.0-47.0); Hemoglobin 11.7 g/dL (11.5-15.3); Lymphocytes % 16.2 %; Mean Corpuscular HGB Conc 31.5 g/dL (30.0-36.0); Mean Corpuscular Hemoglobin 28.6 pg (28.0-34.0); Mean Corpuscular Volume 90.7 fL (81-99); Mean Platelet Volume 9.1 fL (7.4-10.4); Monocytes # 1.1 10^3/uL (0.2-0.9); Monocytes % 8.6 %; Neutrophils # 8.8 10^3/uL (1.8-7.7); Neutrophils % 71.1 %; Nucleated Red Blood Cells % 0 %; Platelet Count 404 10^3/cmm (130-400); Red Blood Count 4.09 10^6/uL (4.1-5.3); Red Cell Distribution Width 14.2 % (12.1-15.1); White Blood Count 12.3 10^3/uL (4.0-10.0)
[2020-01-30 20:51] LABS: Lactic Sepsis W/Reflex 0.6 mmol/L (0.5-2.2)
[2020-01-30 20:53] LABS: Alanine Aminotransferase 24 U/L (0-33); Albumin Level 4.3 g/dL (3.5-5.2); Alkaline Phosphatase 142 IU/L (35-105); Anion Gap 16.2 (5-19); Aspartate Amino Transferase 17 U/L (0-32); Blood Urea Nitrogen 18 mg/dL (6-20); Calcium 9.7 mg/dL (8.5-10.5); Carbon Dioxide 27 mmol/L (22-29); Chloride 100 mmol/L (98-107); Globulin 3.6 g/dL (1.3-4.6); Glomerular Filtration Rate 83.7 mL/min (90-130); Glucose 87 mg/dL (65-115); Magnesium 2.4 mg/dL (1.7-2.3); Osmolality Calculated 284 mOsm/kg (285-295); Potassium 4.2 mmol/L (3.5-5.1); Sodium 139 mmol/L (136-145); Total Bilirubin 0.2 mg/dL (0.15-1.2); Total Protein 7.9 g/dL (6.6-8.7)
[2020-01-30 21:00] LABS: HCG, Serum Qual Negative (Negative)
[2020-01-30] MEDS: lactated ringers 1,000 ML 100 ML IV (21:18)
[2020-01-30 21:20] VITALS: RESP 18; O2SAT 98
[2020-01-30] MEDS: ondansetron 2 mg/ML SDV 2 mL 4 MG IVP (21:20)
[2020-01-30] MEDS: morphine 4 mg/mL SDV 1 mL IVP (21:20)
[2020-01-30 21:38] VITALS: BP 112/70; PULSE 84; RESP 18; O2SAT 98
[2020-01-30] MEDS: clindamycin 900 MG/50 ML PREMIX 100 MG IV (22:32)
[2020-01-31] VITALS (21 sets, daily range): BP systolic 95–125; BP diastolic 62–87; PULSE 61–83; RESP 14–20; TEMP 36.4–37.1; O2SAT 92–100
[2020-01-31] MEDS: morphine 4 mg/mL SDV 1 mL 2 MG IVP ×5 (01:19→20:42)
[2020-01-31 01:32] LABS: Basophils # 0.1 10^3/uL (0.0-0.1); Basophils % 0.4 %; Eosinophils # 0.3 10^3/uL (0.0-0.8); Eosinophils % 2.2 %; Hematocrit 36.6 % (37.0-47.0); Hemoglobin 11.6 g/dL (11.5-15.3); Lymphocytes # 2.4 10^3/uL (0.8-4.8); Lymphocytes % 20.6 %; Mean Corpuscular HGB Conc 31.7 g/dL (30.0-36.0); Mean Corpuscular Hemoglobin 28.4 pg (28.0-34.0); Mean Corpuscular Volume 89.5 fL (81-99); Mean Platelet Volume 9.5 fL (7.4-10.4); Monocytes # 0.8 10^3/uL (0.2-0.9); Neutrophils % 68.9 %; Nucleated Red Blood Cells % 0 %; Platelet Count 410 10^3/cmm (130-400); Red Blood Count 4.09 10^6/uL (4.1-5.3); Red Cell Distribution Width 14.1 % (12.1-15.1); White Blood Count 11.6 10^3/uL (4.0-10.0)
[2020-01-31 01:50] LABS: Anion Gap 16.1 (5-19); Blood Urea Nitrogen 15 mg/dL (6-20); Calcium 9.8 mg/dL (8.5-10.5); Carbon Dioxide 27 mmol/L (22-29); Chloride 99 mmol/L (98-107); Glomerular Filtration Rate 83.7 mL/min (90-130); Glucose 98 mg/dL (65-115); Osmolality Calculated 282 mOsm/kg (285-295); Potassium 4.1 mmol/L (3.5-5.1); Sodium 138 mmol/L (136-145)
--- NOTE | 2020-01-31 05:11 | PC.NURSE ---
This void was from 11 pm and was not measured.
[2020-01-31] MEDS: clindamycin 900 MG/50 ML PREMIX 100 MG IV (05:14)
[2020-01-31] MEDS: lactated ringers 1,000 ML 100 ML IV (05:14)
--- NOTE | 2020-01-31 05:33 | PM.HP ---
Providers/Chief Complaint Admitting Physician: Manolo Dhaliwal MD Primary Care Provider: Jaime Brower MD Chief Complaint: breast lump History of Present Illness Chief Complaint: Right breast pain History of present illness: Ms. Nicolasa Ny is a pleasant 29 year old female patient with history of worsening mastitis of the right breast over the past month or so, patient had an emergency November 24 and started breast-feeding her baby daughter over time started to develop swelling and pain of the right breast and was placed on couple of rounds of antibiotics and patient did not show much improvement and yesterday an ultrasound of the breast was done that showed an abscess of the right breast, Ms. Lai patient's PCP contacted me with her concerns about Ms. Ny and I recommended direct admission for the patient for IV antibiotics with the plan to perform incision and drainage today in the OR under general anesthesia. Breast specific history: Previous breast biopsies none Personal or family history of breast cancer none Age of menarche age of 9 History of menstrual cycles irregular History of control pills 7-year at least Obstetric history A0 miscarriage timesx1 Mode of delivery CS Breast-feeding history patient fed her first child for 1 month both breasts and started feeding her current daughter since delivery and she developed right breast abscess Previous mammograms/compliance not applicable Self breast examination patient is compliant with self breast examination Patient gives history of fever but no chills or nausea and vomit No history of complications related to anesthesia or bleeding Review of Systems General: Reports: 10 or more systems reviewed and unremarkable except in HPI and below Medications/Allergies Home Medications Medication Instructions Recorded Confirmed Last Taken Type Vitamin 1 tab PO DAILY 11/07/19 01/30/20 01/29/20 History thyroid (pork) [OFFSHORING MANAGER Thyroid] 60 mg PO DAILY 11/07/19 01/30/20 01/29/20 History sulfamethoxazole 800 1 tab PO BID 7 Days #14 tab 01/27/20 01/30/20 01/29/20 Rx mg-trimethoprim 160 mg tablet Allergies Allergy/AdvReac Type Severity Reaction Status Date / Time acetaminophen [From Vicodin] Allergy ADR-Nausea Verified 01/31/20 05:56 cefaclor [From Ceclor] Allergy ALGY-Rash Verified 01/31/20 05:56 hydrocodone [From Vicodin] Allergy ADR-Nausea Verified 01/31/20 05:56 latex Allergy ALGY-Rash Verified 01/31/20 05:56 Penicillins Allergy ALGY-Rash Verified 01/31/20 05:56 Sulfa (Sulfonamide Allergy ALGY-Rash Verified 01/31/20 05:56 Antibiotics) PFSH Acute PFSH: Social History Smoking and tobacco status: never smoked Female Reproductive History: Date of last menstrual period: 01/08/20 Vitals/I&O/Wt Last Vital Signs Temp 97.6 F 01/31/20 04:00 Pulse 83 01/31/20 04:00 Resp 16 01/31/20 05:20 BP 100/64 01/31/20 04:00 Pulse Ox 95 01/31/20 04:00 01/30/20 01/30/20 01/31/20 14:59 22:59 06:59 Intake Total 861.666 / 861.666 Output Total 800 / 800 Balance 61.666 / 61.666 Weight last 48 hrs Weight 211 lb Physical Exam Narrative: EXAM NARRATIVE: Patient is conscious alert oriented X3 BMI 34 Head and neck examination PERRLA no masses no cervical lymphadenopathy no jaundice Cardiac examination audible S1-S2 no murmurs no gallops no arrhythmias Chest is clear bilateral,abscence of Rhonchi or wheezes,no surgical emphysema Bilateral breast examination done in the presence of a female digital advertising analyst Surekha Presence of a large tender indurated area occupying the right lower medial quadrant of the breast with tenderness and fluctuation with presence of milk discharging from the right knee otherwise right breast examination shows no discrete masses except from fullness due to the active tissues Otherwise No clinically palpable breast masses, nipple area complex show no abnormalities bilateral, no evidence of nipple discharge except for milky discharge from bilateral nipple, no evidence of lymphadenopathy clinically palpable per bilateral axillary examination as well as supra and infraclavicular regions. Breast examination was done in sitting and supine position Abdomen nontender nondistended soft no organomegaly guarding or rigidity/no signs of peritonitis Extremities no cyanosis no clubbing no edema Data : 01/31/20 00:45 01/31/20 00:45 Micro: Microbiology 01/30/20 21:06 Blood Culture - Preliminary Blood SPECIMEN COLLECTED 01/30/20 20:21 Blood Culture - Preliminary Blood SPECIMEN COLLECTED A&P Assessment and plan (1) Abscess of right breast associated with : After thorough history physical examination and reviewing the chart and images with my personal interpretation I did breastfeeding peer counselor the patient for incision and drainage of right breast abscess under general anesthesia. Parenteral antibiotic I did discuss with the patient about the potential complications associated with the I&D including but not limited to milk fistula and she may require suppression of her for a while till the wound cavity heals. Status: Acute Attestations Medical Necessity Statement*: Observation status Time Spent in Patient Care: 16 - 35 minutes (>than 50% of time spent in counselling and/or direct pt care on unit). Coding Level of Care Code Acute Chief Communications Officer for Carlene Castro Diagnoses Abscess of right breast associated with O91.13
--- NOTE | 2020-01-31 09:43 | ANES.PREANE2 ---
Pre-Anesthetic Assessment Pre-Anesthetic Assessment: Height/Weight: Height 1.68 m Weight 95.708 kg Temp Pulse Resp BP Pulse Ox 98.6 F 76 18 103/73 97 01/31/20 09:39 01/31/20 09:39 01/31/20 09:39 01/31/20 09:39 01/31/20 09:39 Preop Diagnosis: Right breast abscess Proposed Procedure: Operation Date: 01/31/20 11:25 Proposed Procedures p Incision And Drainage right breast abscess(Right) - Manolo Dhaliwal MD Familial anesthetic complications: none Was Beta Jossy taken within 24 hours: N/A Last intake: Intake Last Liquid Date 01/31/20 Last Liquid Time 00:00 Last Solid Date 01/30/20 Last Solid Time 18:00 Social: Social History: No alcohol and No tobacco Exam: Pre-Anes Outpt Exam: alert, oriented x 3, clear to auscultation bilaterally and regular rate & rhythm Airway: Cervical ROM: WNL MP: 1 Dentition: Full Pulmonary: Pulmonary: None reported CV/HEM: CV/HEM: None reported : : None reported Hepatic: Hepatic: None reported GI: GI: None reported Metabolic: Metabolic: Thyroid Musc/skel: Musc/skel: None reported Neuropsych: Neuropsych: None reported Anesthetic Plan: ASA status: 2 Anesthesia: General Other: Abscess deeper down, so will do general Risk of > 500 ml blood loss (7ml/kg in children): No Meds/Allergies Current Medications: Current Medications Generic Name Dose Route Start Last Admin Trade Name Freq PRN Reason Stop Dose Admin Lactated Ringer's 1,000 mls @ 100 m ls/hr 01/30/20 20:45 01/31/20 05:25 Lactated Ringers IV 100 mls/hr .Q10H RONIT Infusion Morphine Sulfate 2 mg 01/31/20 00:46 01/31/20 05:20 Morphine IVP 2 mg Q2H PRN Administration SEVERE PAIN PFSH Anesthesia PFSH: Social History Smoking and tobacco status: never smoked Female Reproductive History: Date of last menstrual period: 01/08/20 Data Anesthesia CBC & Chem 7: 01/31/20 00:45 01/31/20 00:45 Other Labs: Laboratory Results - last 48 hr 01/30/20 01/30/20 01/30/20 20:21 20:21 20:21 WBC 12.3 H RBC 4.09 L Hgb 11.7 Hct 37.1 MCV 90.7 MCH 28.6 MCHC 31.5 RDW 14.2 Plt Count 404 H MPV 9.1 Neut % (Auto) 71.1 Lymph % (Auto) 16.2 [place] % (Auto) 8.6 Eos % (Auto) 2.7 Baso % (Auto) 0.4 Neut # (Auto) 8.8 H Lymph # (Auto) 2.0 [place] # (Auto) 1.1 H Eos # (Auto) 0.3 Baso # (Auto) 0.1 Nucleated RBC % (auto) 0 Nucleated RBCs # 0.0 Sodium 139 Potassium 4.2 Chloride 100 Carbon Dioxide 27 Anion Gap 16.2 BUN 18 Creatinine 0.8 GFR Calculation 83.7 L Glucose 87 Calculated Osmolality 284 L Lactic Acid 0.6 Calcium 9.7 Magnesium 2.4 H Total Bilirubin 0.2 AST 17 ALT 24 Alkaline Phosphatase 142 H Total Protein 7.9 Albumin 4.3 Globulin 3.6 HCG, Qual 01/30/20 01/31/20 01/31/20 20:21 00:45 00:45 WBC 11.6 H RBC 4.09 L Hgb 11.6 Hct 36.6 L MCV 89.5 MCH 28.4 MCHC 31.7 RDW 14.1 Plt Count 410 H MPV 9.5 Neut % (Auto) 68.9 Lymph % (Auto) 20.6 [place] % (Auto) 7.0 Eos % (Auto) 2.2 Baso % (Auto) 0.4 Neut # (Auto) 8.0 H Lymph # (Auto) 2.4 [place] # (Auto) 0.8 Eos # (Auto) 0.3 Baso # (Auto) 0.1 Nucleated RBC % (auto) 0 Nucleated RBCs # 0.0 Sodium 138 Potassium 4.1 Chloride 99 Carbon Dioxide 27 Anion Gap 16.1 BUN 15 Creatinine 0.8 GFR Calculation 83.7 L Glucose 98 Calculated Osmolality 282 L Lactic Acid Calcium 9.8 Magnesium Total Bilirubin AST ALT Alkaline Phosphatase Total Protein Albumin Globulin HCG, Qual Negative Micro: Microbiology 01/30/20 21:06 Blood Culture - Preliminary Blood SPECIMEN COLLECTED 01/30/20 20:21 Blood Culture - Preliminary Blood SPECIMEN COLLECTED Cardiac Studies: No Data to Display
--- NOTE | 2020-01-31 10:14 | PC.NURSE ---
Prn note [id number] [address] off the floor for surgery
[2020-01-31] MEDS: sodium chloride 0.9% 1,000 ML 30 ML IV (10:17)
--- NOTE | 2020-01-31 10:24 | PC.CHAP ---
Pastoral Care Encounter/Spiritual Assessment Type of Contact [] Declined cryptography teacher visit [] Patient/Family/Request visit [] Outpatient visit [] Follow-up visit [] Physician referral [] Code/Alert [] Routine visit [] Staff referral [] Actively dying [] Patient sleeping [] Family support [] [x] Out of room [] Palliative care [] [] Receiving care in room [] Pre-surgical visit [] Trauma [] Long length of stay [] ICU visit [x] Other: Relational/Emotional Strength [] Patient feels connected with others/family/visitors/staff [] Distress [] Loneliness/isolation [] Abandonment Spirituality of Patient [] Person of [place] [] Attends Temple of their [place] [] Believes in Prayer [] Reads Bible or Mu-Ism materials [] There are Spiritual issues to be addressed Leather Softener Interventions [] Prayer [] Active listening [] Non-anxious presence [] Spiritual/emotional support [] Crisis/trauma care [] Spiritual counseling [] Bereavement support [] Provided bereavement packet [] Provided Bible/devotional materials [] Provided toy/stuffed animal, coloring book to patient or family member [] Provided Communion [] Anointing/[place] [] Salvation [x] Completed spiritual assessment [] Other: Impact on Illness or Injury [] Angry [] Fearful [] Anxious [] Often cries [] Exhaustion [] Unable to work [] Unable to attend restorationism [] Unable to walk/stand [] Unable to read [] Unable to drive [] Unable to eat/drink [] Unable to sleep [] Unable to be with family [] Patient intubated [] Other: Summary Patient in surgery Time spent with patient
[2020-01-31] MEDS: lidocaine 2% INJ 20 mL INJECTION (11:38)
--- NOTE | 2020-01-31 11:40 | PM.OP ---
Operative Report Date of procedure: January 31, 2020 Pre-op Diagnosis: Right breast abscess Post-op diagnosis: same Post-op Diagnosis: Abscess cavity measures 5.5 x 3 x [address] to the breast tissues Procedure Done: Incision and drainage of right breast abscess and sharp debridement of abscess cavity Implants: Large piece of Surgicel followed by packing with Kerlix Specimens removed/disposition: Swabs for cultures and sensitivities Tissues for cultures and sensitivity Tissues for pathology Surgeon: Manolo Dhaliwal Roving Department Supervisor: technician support association Patrizia Circulating nurse Hodan Anesthesia: General Estimated blood loss (mL): 15 Complications: No immediate complication Condition: stable Disposition: observation Brief History: History of present illness: Ms. Nicolasa Ny is a pleasant 29 year old female patient with history of worsening mastitis of the right breast over the past month or so, patient had an emergency November 24 and started breast-feeding her baby daughter over time started to develop swelling and pain of the right breast and was placed on couple of rounds of antibiotics and patient did not show much improvement and yesterday an ultrasound of the breast was done that showed an abscess of the right breast, Ms. Lai patient's PCP contacted me with her concerns about Ms. Ny and I recommended direct admission for the patient for IV antibiotics with the plan to perform incision and drainage today in the OR under general anesthesia. Informed consent per chart Procedure: After identifying the patient holding area, the right breast was marked before the procedure by myself in the presence of female neonatal pediatric nurse ,patient was then taken to the operative suite, was placed in supine position, intubated by anesthesia, patient was already on IV antibiotics, right arm was tucked, prep and drape of the right pectoralis region was done under the usual sterile technique. Time-out was done verifying the patient's name/date of /planned procedure and destination after the procedure, all were in agreement After palpation of the breast abscess, aspiration with wide bore needle 14-gauge revealed the purulent discharge to guide me were to create incision. I did add oblique incision on top of the most fluctuant area , after the stab incision was created at gush of about 40-50 mL were revealed, cultures were obtained for aerobes and anaerobes, incision was extended, all loculations were broken down by the examining finger, tissues were obtained for culture as well as for histopathology from different bradshaw of the abscess cavity. Post incision and drainage ;abscess cavity measures 5.5 x 3 x [address] to the breast tissues Thorough irrigation with warm saline was done, followed by appropriate hemostasis, large piece of Surgicel was placed followed by Kerlix impregnated and lidocaine 2% was used to pack the abscess cavity Dry dressing was then applied, followed by sports bra and fluffs. Patient tolerated the procedure well, count of instruments and sponges were completed at the end of the procedure. And then patient was taken to the recovery area in stable condition. I Was present for the whole entire procedure
--- NOTE | 2020-01-31 11:55 | SUR.PHASEI ---
PT TO PACU SLEEPYING QUIETLY, VSS RT BREAST WET TO DRY DRESSING D/I MATERNITY BRA IN PLACE. GOOD RESP EFFORT NOTED
--- NOTE | 2020-01-31 12:09 | SUR.PHASEI ---
PT STATES PAIN IS BETTER NOW, PT DOZING OFF AND ON. VSS
--- NOTE | 2020-01-31 12:35 | PC.NURSE ---
Prn note Patient returned from surgery via gurney. She is alert and oriented in all aspects. Hr regular, breathing even and non labored. dressing dry and intact
--- NOTE | 2020-01-31 12:39 | SUR.PHASEI ---
1230 PT TO FLOOR UP AND WALKED TO BED PT AWAKE ALERT TALKATIVE [facility] NURSE RAÚL, BP 119/78, HR 61, SATS ON RA 95%
[2020-01-31] MEDS: acetaminophen 325 mg Tablet 650 MG PO (15:04)
[2020-01-31] MEDS: clindamycin 600 MG/50 ML PREMIX 100 MG IV (17:11)
[2020-02-01 01:09] VITALS: RESP 16
[2020-02-01] MEDS: morphine 4 mg/mL SDV 1 mL 2 MG IVP ×3 (01:09→09:36)
[2020-02-01] MEDS: clindamycin 600 MG/50 ML PREMIX 100 MG IV ×2 (01:16→09:26)
[2020-02-01 04:00] VITALS: BP 112/71; PULSE 70; RESP 18; TEMP 36.4; O2SAT 96
[2020-02-01 05:51] VITALS: RESP 16
--- NOTE | 2020-02-01 06:37 | P.PN_ITS ---
Subjective Subjective: Interval history: Patient overall feels better No acute events overnight Vitals/I&O/Wt Last Vital Signs Temp 97.5 F L 02/01/20 04:00 Pulse 70 02/01/20 04:00 Resp 16 02/01/20 05:51 BP 112/71 02/01/20 04:00 Pulse Ox 96 02/01/20 04:00 01/31/20 01/31/20 02/01/20 14:59 22:59 06:59 Intake Total 720 / 720 690 / 1410 400 / 1810 Output Total 1690 / 1690 950 / 2640 900 / 3540 Balance -970 / -970 -260 / -1230 -500 / -1730 Weight last 48 hrs Weight 211 lb Physical Exam Narrative: EXAM NARRATIVE: Patient is conscious alert oriented X3 BMI 34 Head and neck examination PERRLA no masses no cervical lymphadenopathy no jaundice Examination of the right breast wound cavity was done in the presence of female contamination consultant AUDRA Hoffmann, packing was removed bedside and repacked by me the Surgicel was taken out, presence of milk secretion at the bed of the abscess cavity, minor residual necrotic tissues but there is no pus and no surrounding cellulitis. Data : 01/31/20 00:45 01/31/20 00:45 Micro: Microbiology 01/30/20 21:06 Blood Culture - Preliminary Blood NEGATIVE TO DATE 01/30/20 20:21 Blood Culture - Preliminary Blood NEGATIVE TO DATE 01/31/20 11:23 Gram Stain - Final Breast - #1 01/31/20 11:23 Gram Stain - Final Breast - #3 A&P Assessment and plan (1) Abscess of right breast associated with : Daily wet-to-dry dressing change using mini Kerlix followed by ABD and supportive bra We will plan to discharge patient home today with home health being arranged for have the patient follow-up with me at the wound care center in 1 week due to the complexity of patient's wound. I did discuss again that she may require suppression of her for a while till the wound cavity heals, particularly in the evidence of milk secretion coming from the bed of the wound. Will defer to Dr. Brower and Ms. Lai about potential future management w regard to suppression of . Patient reports that she had Percocet before and that was convenient for her Assurance and education All questions have been answered and all concerns have been addressed to patient's satisfaction. Status: Resolved Attestations Medical Necessity Statement*: Observation status Time Spent in Patient Care: 16 - 35 minutes (>than 50% of time spent in counselling and/or direct pt care on unit) . Coding Level of Care Code Acute Ear Nose Throat Physician for Chg Fwd Diagnoses Abscess of right breast associated with O91.13
--- NOTE | 2020-02-01 06:40 | P.SS_ITS ---
Short Stay Summary Providers Date of Admit/Discharge: 02/01/20 Attending Provider: Manolo Dhaliwal MD Primary Care Provider: Jaime Brower MD Chief Complaint: breast lump HPI History of Present Illness Ms. Nicolasa Ny is a 29 year old female with history of right breast abscess that undergone incision and drainage yesterday and the plan is to discharge home today. Full history and physical per chart Review of Systems General: Reports: 10 or more systems reviewed and unremarkable except in HPI and below Home Meds/Allergies Home Medications and Allergies Home Medications Medication Instructions Recorded Confirmed Type Vitamin 1 tab PO DAILY 11/07/19 01/30/20 History thyroid (pork) [EXCHANGE SPECIALIST Thyroid] 60 mg PO DAILY 11/07/19 01/30/20 History Allergies Allergy/AdvReac Type Severity Reaction Status Date / Time acetaminophen [From Vicodin] Allergy ADR-Nausea Verified 02/01/20 09:38 cefaclor [From Ceclor] Allergy ALGY-Rash Verified 02/01/20 09:38 hydrocodone [From Vicodin] Allergy ADR-Nausea Verified 02/01/20 09:38 latex Allergy ALGY-Rash Verified 02/01/20 09:38 Penicillins Allergy ALGY-Rash Verified 02/01/20 09:38 Sulfa (Sulfonamide Allergy ALGY-Rash Verified 02/01/20 09:38 Antibiotics) PFSH Acute PFSH: Medical History Abscess of right breast associated with Surgical History History of section Family History Father Diabetes Hypertension Mother Thyroid disease Hypertension Social History Smoking and tobacco status: never smoked Female Reproductive History: Date of last menstrual period: 01/08/20 Vitals/I&O/Wt Last Vital Signs Temp 97.5 F L 02/01/20 04:00 Pulse 70 02/01/20 04:00 Resp 16 02/01/20 05:51 BP 112/71 02/01/20 04:00 Pulse Ox 96 02/01/20 04:00 01/31/20 01/31/20 02/01/20 14:59 22:59 06:59 Intake Total 720 / 720 690 / 1410 400 / 1810 Output Total 1690 / 1690 950 / 2640 900 / 3540 Balance -970 / -970 -260 / -1230 -500 / -1730 Weight last 48 hrs Weight 211 lb Physical Exam Narrative: EXAM NARRATIVE: Patient is conscious alert oriented X3 BMI 34 Head and neck examination PERRLA no masses no cervical lymphadenopathy no jaundice Examination of the right breast wound cavity was done in the presence of female side seam tender AUDRA Hoffmann, packing was removed bedside and repacked by me the Surgicel was taken out, presence of milk secretion at the bed of the abscess cavity, minor residual necrotic tissues but there is no pus and no surrounding cellulitis. Hospital Course Admission Diagnoses: Right breast abscess Discharge Summary: This is a pleasant 29 years old female patient undergone uneventful incision and drainage of symptomatic right breast abscess and biopsies were obtained, patient continued to have stable vital signs and tolerating well p.o. intake, dressing has changed today and she continue to be on parenteral antibiotics and the plan to discharge home today. With pain being under control and she was comfortable by having Percocet for pain control upon discharge. SSS Data Data Completed and Pending: Pending at discharge Category Date Time Status Abscess Culture a nd Gram Stain Rout ine Lab 01/31/20 11:23 Results Anaerobic Culture Routine Lab 01/31/20 11:23 Received Blood Culture Sta t Lab 01/30/20 21:06 Results Tissue Culture an d Gram Stain Routi ne Lab 01/31/20 11:23 Results Pathology: Surgic al [PTH] Routine Pth 01/31/20 12:06 Ordered Diagnoses at Discharge Discharge Diagnosis (1) Abscess of right breast associated with : Status: Resolved Problem details: Daily wet-to-dry dressing change in the form of packing with mini Kerlix followed by ABDs and sports bra. We will follow on cultures and sensitivities, clinically I do not believe that the patient will require more antibiotics at this time, unless she developed worsening symptoms and surrounding cellulitis Discharge Plan Discharge Patient Disposition: Home, Self-Care Condition: Stable Prescriptions: New Percocet 5-325 mg tablet 1 tab PO Q6H PRN (Reason: pain) Qty: 28 RF: 0 bromocriptine 2.5 mg tablet 2.5 mg PO DAILY Qty: 30 RF: 0 Continued sulfamethoxazole-trimethoprim [Bactrim DS] 800-160 mg tablet 1 tab PO BID 7 Days Qty: 14 RF: 0 Vitamin 27 mg iron- 800 mcg Tablet 1 tab PO DAILY RF: 0 thyroid (pork) [EXCHANGE SPECIALIST Thyroid] 60 mg Tablet 60 mg PO DAILY RF: 0 Discharge Orders: Discharge Order (Routine); Ordered 02/01/20 Ordered By: Manolo Dhaliwal Referrals: Manolo Dhaliwal MD [Physician] - 02/09/20 8:00 am (Return to wound care center in 1 week to follow-up with [facility] ) Jaime Browre MD [Primary Care Provider] - 02/08/20 9:20 am Discharge Diet: Advance as tolerated Discharge Activity: Resume usual activity Patient Instructions: Oxycodone/Acetaminophen (By mouth), Mastitis (DC), Abscess (GEN) Activity Restrictions/Additional Instructions: 1. Patient can shower voiding then the wound is already packed and covered 2. Daily packing of the wound with wet-to-dry mini Kerlix followed by ABD and sports bra 3. Up and walking as tolerated 4. Do lift heavily 5. Do not operate heavy machinery or drive while using pain medications. 6.Contact the office or return to the ER for worsening nausea vomiting fevers or chills, or noticing any redness around incision sites or discharge. 6. Advised to return to ER or contact my office if there are any signs of infection like, increasing pain, fevers, chills, redness or drainage of pus. 7. Avoid constipation being on narcotics Attestations Medical Necessity Statement*: Observation Time Spent in Patient Care*: less than 30 min Quality Metrics Clinical Quality Measures: During this hospital stay, did patient experience: None Coding Level of Care Code Acute Catalyst Unit Operator for Chg Fwd Diagnoses Abscess of right breast associated with O91.13
[2020-02-01 07:15] VITALS: BP 118/70; PULSE 62; RESP 16; TEMP 36.6; O2SAT 95
[2020-02-01 09:36] VITALS: RESP 18; O2SAT 95
--- NOTE | 2020-02-01 09:38 | PC.NURSE ---
Pt rates pain 6/10 in right breast due to having an incision.
[2020-02-01 11:10] VITALS: PULSE 62; RESP 18; TEMP 36.6; O2SAT 95
--- NOTE | 2020-02-01 11:25 | PC.NURSE ---
Discharge Discharge instructions given and educated on, Pt verbalized understanding, IV removed, tip intact, Pt tolerated well, prescriptions given to PT and educated on. Pt ambulated to vehicle with no issues.
== END 2020-02-01 11:25 | disposition home or self-care (01) ==
LOC: ER 20:09 → MEDSURG 21:02
PROVIDERS: Emergency Medicine; Admitting Provider Surgery; Emergency Provider Physician Assistant; Family Provider Family Medicine; PCP Family Medicine; Visit Provider Surgery
PROC: (CPT 10060; principal; 2020-01-31 11:25)
DX: O91.13 Abscess of breast associated with lactation (principal)
CPT/HCPCS: 10060; 12345; 36415; 80048; 80053; 83605; 83735; 84703; 85025; 87040; 87070; 87075; 87077; 87176; 87186; 87205; 88304; 96361; 96365; 96366; 96367; 96375; 99282; 99285; G0378; J1100; J2001; J2250; J2270; J2405; J2704; J3010; J3490; J7030

== ENCOUNTER 2020-02-02 10:01 | Outpatient (CLI) | payer MEDICAID, SELFPAY | END 2020-02-02 10:02 | disposition home or self-care (01) | LOC: WOUND 10:02 | PROVIDERS: Family Provider Family Medicine; PCP Family Medicine; Visit Provider Surgery | DX: T81.89XA Other complications of procedures, not elsewhere classified, initial encounter (principal); Y83.8 Other surgical procedures as the cause of abnormal reaction of the patient, or of later complication, without mention of misadventure at the time of the procedure | CPT/HCPCS: 11042; G0463 ==

== ENCOUNTER 2020-02-06 15:10 | Outpatient (CLI) | payer MEDICAID, SELFPAY | END 2020-02-06 15:11 | disposition home or self-care (01) | LOC: WOUND 15:11 | PROVIDERS: Family Provider Family Medicine; PCP Family Medicine; Visit Provider Thoracic Surgery (Cardiothoracic Vascular Surgery) | DX: Z51.89 Encounter for other specified aftercare (principal) | CPT/HCPCS: 99212 ==

== ENCOUNTER 2020-02-09 10:52 | Outpatient (CLI) | payer MEDICAID, SELFPAY | END 2020-02-09 10:53 | disposition home or self-care (01) | LOC: WOUND 10:52 | PROVIDERS: Family Provider Family Medicine; PCP Family Medicine; Visit Provider Surgery | DX: T81.89XA Other complications of procedures, not elsewhere classified, initial encounter (principal); Y83.8 Other surgical procedures as the cause of abnormal reaction of the patient, or of later complication, without mention of misadventure at the time of the procedure | CPT/HCPCS: 11042 ==

== ENCOUNTER 2020-02-16 13:27 | Outpatient (CLI) | payer MEDICAID, SELFPAY | END 2020-02-16 13:28 | disposition home or self-care (01) | PROVIDERS: Family Provider Family Medicine; PCP Family Medicine; Visit Provider Surgery | DX: T81.89XA Other complications of procedures, not elsewhere classified, initial encounter (principal); Y83.8 Other surgical procedures as the cause of abnormal reaction of the patient, or of later complication, without mention of misadventure at the time of the procedure | CPT/HCPCS: 11042 ==

== ENCOUNTER 2020-02-23 13:07 | Outpatient (CLI) | payer MEDICAID, SELFPAY | END 2020-02-23 13:08 | disposition home or self-care (01) | LOC: WOUND 13:08 | PROVIDERS: Family Provider Family Medicine; PCP Family Medicine; Visit Provider Surgery | DX: T81.89XA Other complications of procedures, not elsewhere classified, initial encounter (principal); Y83.8 Other surgical procedures as the cause of abnormal reaction of the patient, or of later complication, without mention of misadventure at the time of the procedure | CPT/HCPCS: 11042 ==

== ENCOUNTER 2020-02-24 15:56 | Emergency (ER) | payer MEDICAID, SELFPAY ==
[2020-02-24 16:01] VITALS: BP 107/75; PULSE 86; RESP 14; TEMP 36.2; O2SAT 100; BMI 33.4
--- NOTE | 2020-02-24 16:14 | W.ED.FEMALGU ---
HPI - Female Genitourinary General: Chief complaint: Vaginal Bleeding Stated complaint: abnormal period/light headed/n/v Time Seen by Provider: 02/24/20 16:10 Source: patient Mode of arrival: ambulatory Limitations: no limitations History of Present Illness: HPI Narrative: 29-year-old female who states she has heavy periods and irregular periods in the past. States that her period has been quite heavy has been passing clots. She states that she was at [employer] and felt lightheaded. She states she felt like she was going to pass out. Denies any fevers. MD elicited complaint: vaginal bleeding Onset (ago): day(s) Associated symptoms: Deny abdominal pain, headache(s) or nausea Date of Last Menstrual Period: 01/08/20 Review of Systems Const: Denies: fever(s), chills, body aches or change in appetite Eyes: Denies: blurry vision or eye discomfort ENMT: Denies: throat pain or dental pain Card: Denies: chest pain Resp: Denies: dyspnea GI: Denies: abdominal pain, nausea, vomiting or diarrhea : Reports: vaginal bleeding Musc: Denies: neck pain or back pain Skin/Breast: Denies: rash Neuro: Denies: headache(s) Psych: Denies: depression Simone/Lymph: Denies: easy bruising All/Imm: Denies: urticaria PFSH ED PFSH: Medical History Abscess of right breast associated with Daily wet-to-dry dressing change in the form of packing with mini Kerlix followed by ABDs and sports bra. We will follow on cultures and sensitivities, clinically I do not believe that the patient will require more antibiotics at this time, unless she developed worsening symptoms and surrounding cellulitis Depression Depression with anxiety Surgical History History of section Family History Father Diabetes Hypertension Mother Thyroid disease Hypertension Social History Smoking and tobacco status: never smoked Female Reproductive History: Date of last menstrual period: 01/08/20 Physical Exam Const: COMMON NORMALS: no acute distress, patient oriented x3 and healthy appearing HENMT: COMMON NORMALS: normocephalic and atraumatic HEAD & SCALP: normocephalic and atraumatic Eye: COMMON NORMALS: Equal, round and reactive pupils present and EOMs intact bilaterally PUPIL: Yes Equal, round and reactive pupils present Neck/C-Spine: COMMON NORMALS: full ROM and supple Chest: COMMONS NORMALS: normal inspection of the chest and normal palpation of entire chest wall Resp: COMMON NORMALS: normal respiratory effort, No retractions, No use of accessory muscles and clear to auscultation bilaterally AUSCULTATION: clear to auscultation bilaterally Cardio: COMMON NORMALS: regular rate, regular rhythm and No murmurs present (Cardio) RATE: regular rate RHYTHM: regular rhythm GI: COMMON NORMALS: Normal to inspection, nondistended, normoactive bowel sounds present, Soft to palpation, non-tender and no masses PALPATION: Yes Soft to palpation Extremity: COMMON NORMALS: normal to inspection and full ROM Neuro: COMMON NORMALS: patient oriented x3, moves all extremities and no focal motor deficits Psych: COMMON NORMALS: mental status grossly normal, Normal thought process present and cooperative THOUGHT PROCESS: Normal thought process present Skin: COMMON NORMALS: no rashes or lesions noted and no wounds GENERAL SKIN EXAM: no rashes or lesions noted Course Vital Signs: Vital signs: Vital Signs Temperature 97.1 F L 02/24/20 16:01 Pulse Rate 86 02/24/20 16:01 Respiratory Rate 18 02/24/20 16:29 Blood Pressure 107/75 02/24/20 16:01 Pulse Oximetry 100 02/24/20 16:01 MDM - Female [facility] Narrative: Medical decision making narrative: Gordo presents here with vaginal bleeding from her menstruation. Her hemoglobin here is stable and vitals are normal. She is well-appearing here and is to follow-up with her primary care doctor in 2 to 3 days. Patient is to return to the ER if worsening. She understands and agrees to plan. Lab Data: Labs: Lab Results 02/24/20 02/24/20 02/24/20 Range/Units 16:17 16:17 16:17 WBC 5.7 (4.0-10.0) 10^3/ uL RBC 4.02 L (4.1-5.3) 10^6/u L Hgb 11.3 L (11.5-15.3) g/dL Hct 35.9 L (37.0-47.0) % MCV 89.3 (81-99) fL MCH 28.1 (28.0-34.0) pg MCHC 31.5 (30.0-36.0) g/dL RDW 13.9 (12.1-15.1) % Plt Count 279 (130-400) 10^3/c mm MPV 9.4 (7.4-10.4) fL Neut % (Auto) 60.5 % Lymph % (Auto) 28.1 % [place] % (Auto) 9.6 % Eos % (Auto) 1.2 % Baso % (Auto) 0.3 % Neut # (Auto) 3.5 (1.8-7.7) 10^3/u L Lymph # (Auto) 1.6 (0.8-4.8) 10^3/u L [place] # (Auto) 0.6 (0.2-0.9) 10^3/u L Eos # (Auto) 0.1 (0.0-0.8) 10^3/u L Baso # (Auto) 0.0 (0.0-0.1) 10^3/u L Nucleated RBC % (a uto) 0 % Nucleated RBCs # 0.0 /100WBC Sodium 141 (136-145) mmol/L Potassium 3.9 (3.5-5.1) mmol/L Chloride 105 (98-107) mmol/L Carbon Dioxide 23 (22-29) mmol/L Anion Gap 16.9 (5-19) BUN 15 (6-20) mg/dL Creatinine 0.6 (0.5-0.9) mg/dL GFR Calculation 116.6 (90-130) mL/min Glucose 112 (65-115) mg/dL Calculated Osmolal ity 289 (285-295) mOsm/k g Calcium 9.2 (8.5-10.5) mg/dL Total Bilirubin 0.6 (0.15-1.2) mg/dL AST 18 (0-32) U/L ALT 19 (0-33) U/L Alkaline Phosphata se 104 (35-105) IU/L Total Protein 6.8 (6.6-8.7) g/dL Albumin 4.1 (3.5-5.2) g/dL Globulin 2.7 (1.3-4.6) g/dL Lipase 45 (13-60) U/L HCG, Qual Negative (Negative) Discharge Plan Discharge Patient Disposition: Home, Self-Care Clinical Impression: Vaginal bleeding Condition: Stable Prescriptions: No Action sulfamethoxazole-trimethoprim [Bactrim DS] 800-160 mg tablet 1 tab PO BID 7 Days Qty: 14 RF: 0 escitalopram oxalate 10 mg tablet 10 mg PO DAILY Qty: 30 RF: 0 Vitamin 27 mg iron- 800 mcg Tablet 1 tab PO DAILY RF: 0 thyroid (pork) [PHYSICIAN OBSTETRICIAN Thyroid] 60 mg Tablet 60 mg PO DAILY RF: 0 Percocet 5-325 mg tablet 1 tab PO Q6H PRN (Reason: pain) Qty: 28 RF: 0 bromocriptine 2.5 mg tablet 2.5 mg PO DAILY Qty: 30 RF: 0 Discharge Orders: Discharge Order (Routine); Ordered 02/24/20 Ordered By: Yady Mcmillan Referrals: Jaime Brower MD [Primary Care Provider] - 1-3 days Discharge Diet: Advance as tolerated Discharge Activity: Resume usual activity Patient Instructions: Menstruation (ED) Coding Level of Care Code ED Flexo Folder Gluer Operator for Chg Fwd Exam Comprehensive
[2020-02-24] MEDS: sodium chloride 0.9% 1,000 ML 999 ML IV (16:18)
[2020-02-24] MEDS: ondansetron 2 mg/ML SDV 2 mL 4 MG IVP (16:22)
[2020-02-24] MEDS: ketorolac 30 mg/mL INJ IVP (16:22)
[2020-02-24 16:28] LABS: Basophils % 0.3 %; Eosinophils # 0.1 10^3/uL (0.0-0.8); Eosinophils % 1.2 %; Hematocrit 35.9 % (37.0-47.0); Hemoglobin 11.3 g/dL (11.5-15.3); Lymphocytes # 1.6 10^3/uL (0.8-4.8); Lymphocytes % 28.1 %; Mean Corpuscular HGB Conc 31.5 g/dL (30.0-36.0); Mean Corpuscular Hemoglobin 28.1 pg (28.0-34.0); Mean Corpuscular Volume 89.3 fL (81-99); Mean Platelet Volume 9.4 fL (7.4-10.4); Monocytes # 0.6 10^3/uL (0.2-0.9); Monocytes % 9.6 %; Neutrophils # 3.5 10^3/uL (1.8-7.7); Neutrophils % 60.5 %; Nucleated Red Blood Cells % 0 %; Platelet Count 279 10^3/cmm (130-400); Red Blood Count 4.02 10^6/uL (4.1-5.3); Red Cell Distribution Width 13.9 % (12.1-15.1); White Blood Count 5.7 10^3/uL (4.0-10.0)
[2020-02-24 16:29] VITALS: RESP 18
[2020-02-24 16:39] LABS: HCG, Serum Qual Negative (Negative)
[2020-02-24 16:48] LABS: Alanine Aminotransferase 19 U/L (0-33); Albumin Level 4.1 g/dL (3.5-5.2); Alkaline Phosphatase 104 IU/L (35-105); Anion Gap 16.9 (5-19); Aspartate Amino Transferase 18 U/L (0-32); Blood Urea Nitrogen 15 mg/dL (6-20); Calcium 9.2 mg/dL (8.5-10.5); Carbon Dioxide 23 mmol/L (22-29); Chloride 105 mmol/L (98-107); Globulin 2.7 g/dL (1.3-4.6); Glomerular Filtration Rate 116.6 mL/min (90-130); Glucose 112 mg/dL (65-115); Lipase 45 U/L (13-60); Osmolality Calculated 289 mOsm/kg (285-295); Potassium 3.9 mmol/L (3.5-5.1); Sodium 141 mmol/L (136-145); Total Bilirubin 0.6 mg/dL (0.15-1.2); Total Protein 6.8 g/dL (6.6-8.7)
[2020-02-24 17:34] VITALS: BP 118/62; PULSE 70; RESP 18; TEMP 36.2; O2SAT 100
== END 2020-02-24 17:36 | disposition home or self-care (01) ==
PROVIDERS: Emergency Provider Emergency Medicine; Family Provider Family Medicine; PCP Family Medicine
DX: N93.9 Abnormal uterine and vaginal bleeding, unspecified (principal)
CPT/HCPCS: 12345; 80053; 83690; 84703; 85025; 96375; 99282; 99283; J1885; J2405; J7030

== ENCOUNTER → 2020-02-28 11:27 | Outpatient (BNVA) | payer MEDICAID, SELFPAY | PROVIDERS: Family Provider Family Medicine; PCP Family Medicine; Visit Provider Registered Nurse | DX: E03.9 Hypothyroidism, unspecified (principal); F41.8 Other specified anxiety disorders; R55 Syncope and collapse | CPT/HCPCS: 84443 ==

== ENCOUNTER 2020-03-01 13:11 | Outpatient (CLI) | payer MEDICAID, SELFPAY | END 2020-03-01 13:12 | disposition home or self-care (01) | LOC: WOUND 13:12 | PROVIDERS: Family Provider Family Medicine; PCP Family Medicine; Visit Provider Surgery | DX: T81.89XA Other complications of procedures, not elsewhere classified, initial encounter (principal); Y83.8 Other surgical procedures as the cause of abnormal reaction of the patient, or of later complication, without mention of misadventure at the time of the procedure | CPT/HCPCS: 11042 ==

== ENCOUNTER 2020-03-08 13:34 | Outpatient (RCR) | payer MEDICAID, SELFPAY | END 2020-03-26 23:59 | disposition home or self-care (01) | LOC: WOUND 13:34 | PROVIDERS: Family Provider Family Medicine; PCP Family Medicine; Visit Provider Surgery | DX: T81.89XA Other complications of procedures, not elsewhere classified, initial encounter (principal); Y83.8 Other surgical procedures as the cause of abnormal reaction of the patient, or of later complication, without mention of misadventure at the time of the procedure; E05.90 Thyrotoxicosis, unspecified without thyrotoxic crisis or storm | CPT/HCPCS: 11042; 84439; 84480 ==

== ENCOUNTER 2020-03-15 13:43 | Outpatient (CLI) | payer MEDICAID, SELFPAY | END 2020-03-15 13:44 | disposition home or self-care (01) | LOC: WOUND 13:49 | PROVIDERS: Family Provider Family Medicine; PCP Family Medicine; Visit Provider Surgery | DX: T81.89XA Other complications of procedures, not elsewhere classified, initial encounter (principal); Y83.8 Other surgical procedures as the cause of abnormal reaction of the patient, or of later complication, without mention of misadventure at the time of the procedure | CPT/HCPCS: 11042 ==

== ENCOUNTER 2020-03-22 10:46 | Outpatient (CLI) | payer MEDICAID, SELFPAY | END 2020-03-22 10:47 | disposition home or self-care (01) | LOC: WOUND 10:48 | PROVIDERS: Family Provider Family Medicine; PCP Family Medicine; Visit Provider Surgery | DX: Z09 Encounter for follow-up examination after completed treatment for conditions other than malignant neoplasm (principal) ==

== ENCOUNTER 2020-06-09 11:49 | Emergency (ER) | payer MEDICAID, SELFPAY ==
[2020-06-09 12:14] VITALS: BP 125/76; PULSE 72; RESP 16; TEMP 36.8; O2SAT 97; BMI 32.1
--- NOTE | 2020-06-09 12:20 | USR_ITS ---
PROCEDURE INFORMATION: Exam: US Abdomen, Limited; Right Upper Quadrant Exam date and time: 06/09/2020 12:45 PM Age: 29 years old Clinical indication: Abdominal pain; Additional info: Ruq pain TECHNIQUE: Imaging protocol: US abdomen. Real time ultrasound with image documentation. Limited exam focused on the right upper quadrant. COMPARISON: No relevant prior studies available. FINDINGS: Liver: 13 cm Gallbladder: Normal. No gallstones. There is no gallbladder wall thickening. Common bile duct: Normal. No stones. 4.5 mm Pancreas: Visualized pancreas is unremarkable. Right kidney: Normal. No mass. No hydronephrosis. 10.8 cm x 3.7 cm x 4.9 cm. The abdominal aorta has proximal AP measurement of 1.9 cm. US/US gall bladder 25670 IMPRESSION: No acute findings.
--- NOTE | 2020-06-09 12:21 | ED_ITS ---
HPI - Nausea/Vomiting/Diarrhea General: Chief complaint: Nausea/Vomiting/Diarrhea Stated complaint: N/V X 7 DAYS Time Seen by Provider: 06/09/20 12:13 History of Present Illness: HPI Narrative: Patient complains about upper right quadrant pain times a week. Having some nausea and vomiting along with that and occasional diarrhea and constipation. It seems worse if she eats or if she lays down at night has taken some [id number] medicines that has not improved her pain. MD elicited complaint: nausea, vomiting and abdominal pain Onset (ago): day(s) Description of vomiting: food contents Associated nausea: Yes Associated abdominal pain: Yes Location of pain: Epigastric and RUQ Pain consistency: colicky Severity: mild Exacerbating factors: eating Relieving factors: rest Associated symtoms: Reports no associated symptoms and nausea; Denies anxiety, change in vision, chest pain or headache(s) Review of Systems Const: Denies: fever(s), chills or body aches Eyes: Denies: change in vision or blurry vision ENMT: Denies: throat pain or nasal congestion Card: Denies: chest pain or dyspnea on exertion Resp: Denies: dyspnea, productive cough or non-productive cough GI: Reports: abdominal pain and nausea Musc: Denies: extremity pain Skin/Breast: Denies: rash Neuro: Denies: headache(s) Psych: Denies: anxiety or depression Simone/Lymph: Denies: easy bruising [facility] ED PFSH: Medical History (Updated 06/09/20 @ 13:11 by CAESAR Willson) Abscess of right breast associated with Daily wet-to-dry dressing change in the form of packing with mini Kerlix followed by ABDs and sports bra. We will follow on cultures and sensitivities, clinically I do not believe that the patient will require more antibiotics at this time, unless she developed worsening symptoms and surrounding cellulitis Depression Depression with anxiety Surgical History History of section Family History Father Diabetes Hypertension Mother Thyroid disease Hypertension Social History Smoking and tobacco status: never smoked Female Reproductive History: Date of last menstrual period: 06/04/20 Physical Exam Const: COMMON NORMALS: no acute distress, average body habitus and patient oriented x3 HENMT: COMMON NORMALS: normocephalic HEAD & SCALP: normal to inspection and normocephalic FACE & SINUS: normal facial exam Eye: COMMON NORMALS: conjunctivae normal GENERAL EYE: appearance normal, both eyes and all related structures CONJUNCTIVA: Yes conjunctivae normal Neck/C-Spine: COMMON NORMALS: no JVD Chest: COMMONS NORMALS: normal inspection of the chest Resp: COMMON NORMALS: normal respiratory effort and clear to auscultation b ilaterally AUSCULTATION: clear to auscultation bilaterally Cardio: COMMON NORMALS: no JVD, regular rate and regular rhythm RATE: regular rate RHYTHM: regular rhythm GI: COMMON NORMALS: Normal to inspection, nondistended, normoactive bowel sounds present PALPATION: Yes Tenderness to palpation present (GI) Details: RUQ Extremity: COMMON NORMALS: normal to inspection and full ROM Neuro: COMMON NORMALS: patient oriented x3 Course Vital Signs: Vital signs: Vital Signs Temperature 98.3 F 06/09/20 12:14 Pulse Rate 72 06/09/20 12:14 Respiratory Rate 16 06/09/20 12:14 Blood Pressure 125/76 06/09/20 12:14 Pulse Oximetry 97 06/09/20 12:14 MDM - Nausea/Vomiting/Diarrhea Lab Data: Labs: Lab Results 06/09/20 06/09/20 06/09/20 Range/Units 12:27 12:27 12:50 WBC 6.2 (4.0-10.0) 10^3/ uL RBC 4.67 (4.1-5.3) 10^6/u L Hgb 12.7 (11.5-15.3) g/dL Hct 41.1 (37.0-47.0) % MCV 88.0 (81-99) fL MCH 27.2 L (28.0-34.0) pg MCHC 30.9 (30.0-36.0) g/dL RDW 16.0 H (12.1-15.1) % Plt Count 300 (130-400) 10^3/c mm MPV 9.6 (7.4-10.4) fL Neut % (Auto) 56.6 % Lymph % (Auto) 32.0 % [place] % (Auto) 7.2 % Eos % (Auto) 3.4 % Baso % (Auto) 0.6 % Neut # (Auto) 3.52 (1.8-7.7) 10^3/u L Lymph # (Auto) 2.0 (0.8-4.8) 10^3/u L [place] # (Auto) 0.5 (0.2-0.9) 10^3/u L Eos # (Auto) 0.2 (0.0-0.8) 10^3/u L Baso # (Auto) 0.0 (0.0-0.1) 10^3/u L Nucleated RBC % (a uto) 0 % Nucleated RBCs # 0.0 /100WBC Sodium 140 (136-145) mmol/L Potassium 4.2 (3.5-5.1) mmol/L Chloride 103 (98-107) mmol/L Carbon Dioxide 27 (22-29) mmol/L Anion Gap 14.2 (5-19) BUN 11 (6-20) mg/dL Creatinine 0.7 (0.5-0.9) mg/dL GFR Calculation 97.6 (90-130) mL/min Glucose 98 (65-115) mg/dL Calculated Osmolal ity 286 (285-295) mOsm/k g Calcium 10.2 (8.5-10.5) mg/dL Total Bilirubin 0.6 (0.15-1.2) mg/dL AST 14 (0-32) U/L ALT 12 (0-33) U/L Alkaline Phosphata se 92 (35-105) IU/L Total Protein 7.0 (6.6-8.7) g/dL Albumin 4.3 (3.5-5.2) g/dL Globulin 2.7 (1.3-4.6) g/dL Lipase 39 (13-60) U/L HCG, Qual Negative (Negative) Urine Color (Yellow) Urine Appearance (CLEAR) Urine pH (5-7) Ur Specific Gravit y (1.005-1.030) Urine Protein (Negative) Urine Glucose (UA) (Normal) Urine Ketones (Negative) Urine Blood (Negative) Urine Nitrate (Negative) Urine Bilirubin (Negative) Urine Urobilinogen (Negative) mg/dL Ur Leukocyte Cortney ase (Negative) 06/09/20 Range/Units 12:50 WBC (4.0-10.0) 10^3/ uL RBC (4.1-5.3) 10^6/u L Hgb (11.5-15.3) g/dL Hct (37.0-47.0) % MCV (81-99) fL MCH (28.0-34.0) pg MCHC (30.0-36.0) g/dL RDW (12.1-15.1) % Plt Count (130-400) 10^3/c mm MPV (7.4-10.4) fL Neut % (Auto) % Lymph % (Auto) % [place] % (Auto) % Eos % (Auto) % Baso % (Auto) % Neut # (Auto) (1.8-7.7) 10^3/u L Lymph # (Auto) (0.8-4.8) 10^3/u L [place] # (Auto) (0.2-0.9) 10^3/u L Eos # (Auto) (0.0-0.8) 10^3/u L Baso # (Auto) (0.0-0.1) 10^3/u L Nucleated RBC % (a uto) % Nucleated RBCs # /100WBC Sodium (136-145) mmol/L Potassium (3.5-5.1) mmol/L Chloride (98-107) mmol/L Carbon Dioxide (22-29) mmol/L Anion Gap (5-19) BUN (6-20) mg/dL Creatinine (0.5-0.9) mg/dL GFR Calculation (90-130) mL/min Glucose (65-115) mg/dL Calculated Osmolal ity (285-295) mOsm/k g Calcium (8.5-10.5) mg/dL Total Bilirubin (0.15-1.2) mg/dL AST (0-32) U/L ALT (0-33) U/L Alkaline Phosphata se (35-105) IU/L Total Protein (6.6-8.7) g/dL Albumin (3.5-5.2) g/dL Globulin (1.3-4.6) g/dL Lipase (13-60) U/L HCG, Qual (Negative) Urine Color Straw (Yellow) Urine Appearance Clear (CLEAR) Urine pH 5 (5-7) Ur Specific Gravit y 1.015 (1.005-1.030) Urine Protein Neg (Negative) Urine Glucose (UA) Norm (Normal) Urine Ketones Negative (Negative) Urine Blood Neg (Negative) Urine Nitrate Negative (Negative) Urine Bilirubin Neg (Negative) Urine Urobilinogen Norm (Negative) mg/dL Ur Leukocyte Cortney ase Negative (Negative) Discharge Plan Discharge Patient Disposition: Home Clinical Impression: GERD (gastroesophageal reflux disease) Qualifiers: Esophagitis presence: esophagitis presence not specified Qualified Code(s): K21.9 - Gastro-esophageal reflux disease without esophagitis Condition: Stable Prescriptions: New Nexium 40 mg capsule,delayed release(DR/EC) 40 mg PO DAILY 42 Days Qty: 42 RF: 0 No Action escitalopram oxalate 20 mg tablet 20 mg PO DAILY Qty: 90 RF: 1 alprazolam [Xanax] 0.5 mg tablet 0.5 mg PO DAILY PRN (Reason: anxiety) 30 Days Qty: 10 RF: 3 Vitamin 27 mg iron- 800 mcg Tablet 1 tab PO DAILY RF: 0 thyroid (pork) [DEVELOPER ARCHITECT Thyroid] 60 mg Tablet 60 mg PO DAILY RF: 0 Discharge Orders: Discharge Order (Routine); Ordered 06/09/20 Ordered By: Jhoan Pringle Referrals: Jaime Brower MD [Primary Care Provider] - Discharge Diet: Low Fat Discharge Activity: Resume usual activity Patient Instructions: Diet for Ulcers and Gastritis (ED), Gastroesophageal Reflux Disease (ED) Activity Restrictions/Additional Instructions: Follow-up with medical provider as directed. Take medications as prescribed. Return to the ER or your medical provider if condition worsens. Please read and understand discharge instructions. If any questions ask please. Coding Level of Care Code ED School Transportation Director for Carlene Fwd Exam Comprehensive
[2020-06-09 12:30] LABS: Basophils % 0.6 %; Eosinophils # 0.2 10^3/uL (0.0-0.8); Eosinophils % 3.4 %; Hematocrit 41.1 % (37.0-47.0); Hemoglobin 12.7 g/dL (11.5-15.3); Mean Corpuscular HGB Conc 30.9 g/dL (30.0-36.0); Mean Corpuscular Hemoglobin 27.2 pg (28.0-34.0); Mean Platelet Volume 9.6 fL (7.4-10.4); Monocytes # 0.5 10^3/uL (0.2-0.9); Monocytes % 7.2 %; Neutrophils # 3.52 10^3/uL (1.8-7.7); Neutrophils % 56.6 %; Nucleated Red Blood Cells % 0 %; Platelet Count 300 10^3/cmm (130-400); Red Blood Count 4.67 10^6/uL (4.1-5.3); White Blood Count 6.2 10^3/uL (4.0-10.0)
[2020-06-09 12:55] LABS: Alanine Aminotransferase 12 U/L (0-33); Albumin Level 4.3 g/dL (3.5-5.2); Alkaline Phosphatase 92 IU/L (35-105); Anion Gap 14.2 (5-19); Aspartate Amino Transferase 14 U/L (0-32); Blood Urea Nitrogen 11 mg/dL (6-20); Calcium 10.2 mg/dL (8.5-10.5); Carbon Dioxide 27 mmol/L (22-29); Chloride 103 mmol/L (98-107); Globulin 2.7 g/dL (1.3-4.6); Glomerular Filtration Rate 97.6 mL/min (90-130); Glucose 98 mg/dL (65-115); Lipase 39 U/L (13-60); Osmolality Calculated 286 mOsm/kg (285-295); Potassium 4.2 mmol/L (3.5-5.1); Sodium 140 mmol/L (136-145); Total Bilirubin 0.6 mg/dL (0.15-1.2)
[2020-06-09] MEDS: lidocaine 2% viscous 15 ML, aluminum-mag hydrox-simethicon 30 ML, sucralfate oral liq 1 GM PO (12:59)
[2020-06-09 13:00] LABS: Add Urine Microscopic? NO
[2020-06-09 13:12] LABS: Bilirubin Urine Neg (Negative); Blood Urine Neg (Negative); Glucose Urine UA Norm (Normal); HCG Qualitative Urine. Negative (Negative); Ketones Urine Negative (Negative); Leukocyte Esterase Urine Negative (Negative); Nitrate Urine Negative (Negative); Protein Urine Neg (Negative); Specific Gravity, Urine 1.015 (1.005-1.030); Urine Appearance Clear (CLEAR); Urine Color Straw (Yellow); Urobilinogen Urine Norm (Negative); pH Urine 5 (5-7)
[2020-06-09 14:36] VITALS: BP 112/73; PULSE 59; RESP 18; O2SAT 98
== END 2020-06-09 14:37 | disposition home or self-care (01) ==
PROVIDERS: Emergency Provider Nurse Practitioner Family; PCP Family Medicine
DX: K21.9 Gastro-esophageal reflux disease without esophagitis (principal)
CPT/HCPCS: 12345; 36415; 76705; 80053; 81003; 81025; 83690; 85025; 96360; 99282; 99283

== ENCOUNTER → 2021-02-27 10:20 | Outpatient (BNVA) | payer MEDICAID, SELFPAY | PROVIDERS: PCP Family Medicine; Visit Provider Registered Nurse | DX: E53.8 Deficiency of other specified B group vitamins (principal); E03.9 Hypothyroidism, unspecified; F41.8 Other specified anxiety disorders; R53.83 Other fatigue; F32.9 Major depressive disorder, single episode, unspecified; L20.9 Atopic dermatitis, unspecified | CPT/HCPCS: 80053; 82607; 84436; 84443; 84481; 85025 ==

== ENCOUNTER → 2021-07-24 14:26 | Outpatient (BNVA) | payer MEDICAID, SELFPAY | PROVIDERS: PCP Registered Nurse; Visit Provider Surgery | DX: Z11.52 Encounter for screening for COVID-19 (principal); Z20.822 Contact with and (suspected) exposure to COVID-19 | CPT/HCPCS: 87635 ==

== ENCOUNTER 2021-07-30 06:17 | Day surgery (SDC) | payer MEDICAID, SELFPAY ==
[2021-07-25 14:57] VITALS: BMI 33.9
--- NOTE | 2021-07-30 06:41 | W.PM.OPSFHP ---
Same Day Surgery H&P Indication for Procedure/HPI DATE OF PROCEDURE: July 30, 2021 CHIEF COMPLAINT/INDICATIONFOR SURGICAL PROCEDURE: Bleeding per rectum PREOP DIAGNOSIS: Change in bowel habits and bleeding per rectum PLANNED PROCEDRUE: Operation Date: 07/30/21 07:15 Proposed Procedures p Colonoscopy 33456 K62.5(Not Applicable) - Manolo Dhaliwal MD 06/19/2021 This is a pleasant 30 years old female patient presents with history of bleeding per rectum for about a year and concerning for hemorrhoidal disease. Patient also reports history of alternating bowel habits between constipation and diarrhea associated with painful defecation at some times. Patient denies history of colon cancer. And also denies history of hemorrhoidal surgery. Interim history 07/30/2021 Patient comes today for diagnostic colonoscopy ROS All systems have been reviewed negative except as per the above or per problem list Medications/Allergies* Home Medications Medication Instructions Recorded Confirmed Type cyanocobalamin (vitamin B-12) 100 mcg IM UNK 07/25/21 07/25/21 History Allergies/Adverse Reactions Allergy/AdvReac Type Severity Reaction Status Date / Time hydrocodone [From Vicodin] Allergy ADR-Nausea Verified 07/30/21 06:47 latex Allergy ALGY-Rash Verified 07/30/21 06:47 Pertinent History/Comorbid Conditions* Medical History (Updated 06/21/21 @ 08:36 by Manolo Dhaliwal MD) Abscess of right breast associated with Daily wet-to-dry dressing change in the form of packing with mini Kerlix followed by ABDs and sports bra. We will follow on cultures and sensitivities, clinically I do not believe that the patient will require more antibiotics at this time, unless she developed worsening symptoms and surrounding cellulitis Depression Depression with anxiety Surgical History (Updated 11/24/19 @ 14:57 by Jaime Brower MD) History of section Family History (Updated 11/24/19 @ 14:59 by Jaime Brower MD) Diabetes Father Hypertension Father Mother Thyroid disease Mother Social History Smoking and tobacco status: current every day smoker Pertinent Exam Findings alert, oriented x 3, regular rate & rhythm and procedure specific exam findings (Abdominal examination nontender nondistended soft) Recommendations Surgery/Procedure today (Colonoscopy with possible biopsy) Coding Level of Care Code Acute Learning And Development Administrator for Carlene Castro
[2021-07-30 06:56] LABS: OR HCG Qualitative Urine Negative (Negative)
[2021-07-30] MEDS: sodium chloride 0.9% 1,000 ML 30 ML IV (06:58)
--- NOTE | 2021-07-30 07:09 | ANES.PREANE2 ---
Pre-Anesthetic Assessment Pre-Anesthetic Assessment: Height/Weight: Height 1.68 m Weight 95.254 kg Preop Diagnosis: Change in bowel habits and bleeding per rectum Proposed Procedure: Operation Date: 07/30/21 07:15 Proposed Procedures p Colonoscopy 07313 K62.5(Not Applicable) - Manolo Dhaliwal MD Was Beta Jossy taken within 24 hours: N/A Was Clonidine taken within 24 hours: N/A Last intake: Intake Last Liquid Date 07/29/21 Last Liquid Time 21:00 Last Solid Date 07/28/21 Last Solid Time 18:00 Social: Social History: Tobacco and No alcohol Packs per day: 1 Exam: Pre-Anes Outpt Exam: alert and oriented x 3 Airway: Submandibular: WNL Cervical ROM: WNL MP: 2 Dentition: Full History/ROS: No significant history except as noted Pulmonary: Pulmonary: None reported CV/HEM: CV/HEM: None reported : : None reported Hepatic: Hepatic: None reported GI: GI: GERD Metabolic: Metabolic: Thyroid Musc/skel: Musc/skel: None reported Neuropsych: Neuropsych: Anxiety and Depression Anesthetic Plan: ASA status: 3 Anesthesia: Anesthesia Evaluation and MAC Risk of > 500 ml blood loss (7ml/kg in children): No Meds/Allergies Current Medications: Current Medications Generic Name Dose Route Start Last Admin Trade Name Freq PRN Reason Stop Dose Admin Sodium Chloride 1,000 mls @ 30 ml s/hr 07/30/21 06:30 07/30/21 06:58 Sodium Chloride 0.9% IV 07/31/21 06:29 30 mls/hr .Q24H RONIT Administration PFSH Anesthesia PFSH: Medical History Abscess of right breast associated with Daily wet-to-dry dressing change in the form of packing with mini Kerlix followed by ABDs and sports bra. We will follow on cultures and sensitivities, clinically I do not believe that the patient will require more antibiotics at this time, unless she developed worsening symptoms and surrounding cellulitis Depression Depression with anxiety Surgical History History of section Family History Father Diabetes Hypertension Mother Thyroid disease Hypertension Social History Smoking and tobacco status: current every day smoker Female Reproductive History: Date of last menstrual period: 06/04/20 Data Anesthesia Other Labs: Laboratory Results - last 48 hr 07/30/21 06:54 Urine HCG, Qual Negative Cardiac Studies: No Data to Display
[2021-07-30 07:33] VITALS: BP 105/78; PULSE 81; RESP 16; TEMP 36.1; O2SAT 96
[2021-07-30 07:44] VITALS: BP 107/65; PULSE 83; RESP 18; O2SAT 97
--- NOTE | 2021-07-30 14:29 | ANE.PACU2 ---
Inpatient post-anesthesia follow up: Airway intact: Yes Vital signs: Temperature 97.0 F Pulse Rate 83 Respiratory Rate 18 Blood Pressure 107/65 Pulse Oximetry 97 Oxygen Delivery Me thod Room Air Oxygen Flow Rate Fraction of Inspir ed Oxygen Hydration adequate: Yes Nausea and vomiting: No Pain level: 1 Mental status: Baseline
== END 2021-07-30 08:00 | disposition home or self-care (01) ==
PROVIDERS: Anesthesiology; PCP Registered Nurse; Visit Provider Surgery
PROC: 0DJD8ZZ Inspection of Lower Intestinal Tract, Via Natural or Artificial Opening Endoscopic (ICD-10-PCS; CPT 45378; principal; 2021-07-30 07:15)
DX: K62.5 Hemorrhage of anus and rectum (principal); K62.1 Rectal polyp; R19.4 Change in bowel habit; F17.200 Nicotine dependence, unspecified, uncomplicated; Z88.5 Allergy status to narcotic agent; Z91.040 Latex allergy status
CPT/HCPCS: 45380; 81025; 82274; 83630; 84703; 87493; 87506; 88305; 96360; J2704; J7030

== ENCOUNTER → 2021-08-19 13:26 | Outpatient (BNVA) | payer MEDICAID, SELFPAY | PROVIDERS: PCP Registered Nurse; Visit Provider Registered Nurse | DX: Z20.822 Contact with and (suspected) exposure to COVID-19 (principal); J06.9 Acute upper respiratory infection, unspecified | CPT/HCPCS: 87635 ==

== ENCOUNTER → 2021-10-03 11:24 | Outpatient (BNVA) | payer MEDICAID, SELFPAY | PROVIDERS: PCP Registered Nurse; Visit Provider Registered Nurse | DX: E53.8 Deficiency of other specified B group vitamins (principal); E03.9 Hypothyroidism, unspecified | CPT/HCPCS: 82607; 84443 ==

== ENCOUNTER → 2022-01-14 14:28 | Outpatient (BNVA) | payer MEDICAID, SELFPAY | PROVIDERS: PCP Registered Nurse; Visit Provider Registered Nurse | DX: E03.9 Hypothyroidism, unspecified (principal) | CPT/HCPCS: 84443 ==

== ENCOUNTER → 2022-03-20 12:14 | Outpatient (BNVA) | payer MEDICAID, SELFPAY | PROVIDERS: PCP Registered Nurse; Visit Provider Registered Nurse Neonatal Intensive Care | DX: J02.0 Streptococcal pharyngitis (principal) | CPT/HCPCS: 87880 ==

== ENCOUNTER 2022-05-17 15:48 | Emergency (ER) | payer BC, MEDICAID, SELFPAY ==
[2022-05-17 16:09] VITALS: BP 148/92; PULSE 116; RESP 16; TEMP 36.8; O2SAT 96; BMI 37.1
[2022-05-17 16:24] VITALS: BP 175/109; PULSE 102; RESP 16; O2SAT 96
[2022-05-17 16:44] LABS: HCG Qualitative Urine. Negative (Negative)
[2022-05-17 16:53] LABS: Add Urine Microscopic? YES; Bilirubin Urine 1+ (Negative); Blood Urine 2+ (Negative); Glucose Urine UA Norm (Normal); Ketones Urine 1+ (Negative); Leukocyte Esterase Urine Negative (Negative); Nitrate Urine Negative (Negative); Protein Urine 1+ (Negative); RBC Urine 0-4 /hpf (0-2); Specific Gravity, Urine 1.025 (1.005-1.030); Urine Appearance Clear (CLEAR); Urine Color Dark Yellow (Yellow); Urobilinogen Urine 1 mg/dL (Negative); WBC Urine 0-4 /hpf (0-5); pH Urine 5 (5-7)
[2022-05-17 16:54] LABS: Add Urine Culture? No; Bacteria Urine 1+ /hpf; Hyaline Casts Urine 0-4 /lpf; Mucus Urine 1+ /hpf
[2022-05-17] MEDS: lidocaine 2% viscous 15 ML, aluminum-mag hydrox-simethicon 30 ML, sucralfate oral liq 1 GM PO (16:54)
[2022-05-17 17:18] LABS: Basophils % 0.3 %; Eosinophils % 0.2 %; Hematocrit 46.9 % (37.0-47.0); Hemoglobin 15.5 g/dL (11.5-15.3); Lymphocytes # 1.7 10^3/uL (0.8-4.8); Lymphocytes % 18.4 %; Mean Corpuscular Hemoglobin 29.5 pg (28.0-34.0); Mean Corpuscular Volume 89.3 fl (81-99); Mean Platelet Volume 9.6 fL (7.4-10.4); Monocytes # 0.7 10^3/uL (0.2-0.9); Monocytes % 7.6 %; Neutrophils # 6.87 10^3/uL (1.8-7.7); Neutrophils % 73.2 %; Nucleated Red Blood Cells % 0 %; Platelet Count 360 10^3/cmm (130-400); Red Blood Count 5.25 10^6/uL (4.1-5.3); White Blood Count 9.4 10^3/uL (4.0-10.0)
--- NOTE | 2022-05-17 17:30 | W.ED.ABDPA2 ---
HPI - Abdominal Pain General: Chief Complaint: Abdominal Pain Stated Complaint: n/v/d, abdomen pain and back pain Time Seen by Provider: 05/17/22 16:13 History of Present Illness: 31-year-old female presenting today with acute on chronic abdominal pain. Patient notes she has been seen multiple times for this. Including a recent CT abdomen pelvis as well as a right upper quadrant ultrasound. Both of these were not diagnostic for abnormalities. Recently started on Bentyl which initially helped her pain. Notes that she was recently diagnosed with irritable bowel syndrome. Has never had an upper endoscopy. Notes pain in her epigastric region that is worse with eating. Somewhat relieved when not eating. Worse at nighttime. No associated dysuria or polyuria. Does have intermittent diarrhea. No significant surgical history. Related Data: Date of Last Menstrual Period: 06/04/20 Review of Systems General: Reports: 10 or more systems reviewed and unremarkable except in HPI and below PFS ED PFSH: Medical History Abscess of right breast associated with Daily wet-to-dry dressing change in the form of packing with mini Kerlix followed by ABDs and sports bra. We will follow on cultures and sensitivities, clinically I do not believe that the patient will require more antibiotics at this time, unless she developed worsening symptoms and surrounding cellulitis Colon polyp Depression Depression with anxiety Hemorrhoids Surgical History History of breast surgery 2020 History of section Family History Father Diabetes Hypertension Mother Thyroid disease Hypertension Social History Smoking and tobacco status: former smoker Female Reproductive History: Date of last menstrual period: 06/04/20 Physical Exam Const: COMMON NORMALS: no acute distress, patient oriented x3 and alert GENERAL APPEARANCE: cooperative ORIENTATION/CONSCIOUSNESS: Yes awake, Yes oriented to person, Yes oriented to place and Yes oriented to time HENMT: COMMON NORMALS: normocephalic, atraumatic, external ears normal, Normal external nose present and moist oral mucous membranes HEAD & SCALP: normal to inspection, normocephalic and atraumatic NOSE: Normal external nose present GENERAL EAR: hearing grossly impaired EXTERNAL EAR: Yes external ears normal Eye: COMMON NORMALS: Equal, round and reactive pupils present, EOMs intact bilaterally, conjunctivae normal and no scleral icterus GENERAL EYE: appearance normal, both eyes and all related structures EYELID: eyelids normal CONJUNCTIVA: Yes conjunctivae normal SCLERA: sclerae normal PUPIL: Yes Equal, round and reactive pupils present Neck/C-Spine: COMMON NORMALS: full ROM, supple and no JVD GENERAL: Yes normal visual inspection Lymph: LYMPHATIC: no lymphadenopathy noted and no lymphedema noted Chest: COMMONS NORMALS: normal inspection of the chest Resp: COMMON NORMALS: normal respiratory effort, No retractions and No use of accessory muscles Cardio: COMMON NORMALS: no JVD, regular rate and regular rhythm RATE: regular rate RHYTHM: regular rhythm GI: COMMON NORMALS: Normal to inspection, nondistended, normoactive bowel sounds present : COMMON NORMALS: Yes no CVA tenderness BLADDER/KIDNEY EXAM: Yes no CVA tenderness Back/Pelvis: COMMON NORMALS: no CVA tenderness and thoracic and lumbar spine normal to inspection Extremity: COMMON NORMALS: normal to inspection, full ROM and capillary refill normal GENERAL: Yes normal exam except as noted Neuro: COMMON NORMALS: patient oriented x3, CN's II-XII intact bilaterally, moves all extremities, no focal motor deficits, no sensory deficits noted and gait normal SENSORIUM/ORIENTATION: Yes alert, Yes oriented to person, Yes oriented to place and Yes oriented to time Psych: COMMON NORMALS: mental status grossly normal, Normal thought process present, cooperative and normal affect THOUGHT PROCESS: Normal thought process present Skin: COMMON NORMALS: no rashes or lesions noted and no wounds GENERAL SKIN EXAM: no rashes or lesions noted Course Vital Signs: Vital signs: Vital Signs Temperature 98.3 F 05/17/22 16:09 Pulse Rate 102 H 05/17/22 16:24 Respiratory Rate 16 05/17/22 16:24 Blood Pressure 175/109 05/17/22 16:24 Pulse Oximetry 96 05/17/22 16:24 Oxygen Delivery Me thod 05/17/22 16:24 MDM - Abdominal Pain Medical Decision Making 31-year-old female presenting today with epigastric abdominal pain. C Patient was given a GI cocktail with improvement in symptoms. Vital signs are within normal limits. Will place patient on Carafate. Recommended routine follow-up with general surgery for upper endoscopy. Patient was given strict return precautions and recommended outpatient follow-up. Lab Data : 05/17/22 17:11 05/17/22 17:11 Labs/Radiology: Laboratory Results WBC 9.4 10^3/uL (4.0-10.0) 05/17/22 17:11 RBC 5.25 10^6/uL (4.1-5.3) 05/17/22 17:11 Hgb 15.5 g/dL (11.5-15.3) H 05/17/22 17:11 Hct 46.9 % (37.0-47.0) 05/17/22 17:11 MCV 89.3 fl (81-99) 05/17/22 17:11 MCH 29.5 pg (28.0-34.0) 05/17/22 17:11 MCHC 33.0 g/dL (30.0-36.0) 05/17/22 17:11 RDW 13.0 % (12.1-15.1) 05/17/22 17:11 Plt Count 360 10^3/cmm (130-400) 05/17/22 17:11 MPV 9.6 fL (7.4-10.4) 05/17/22 17:11 Neut % (Auto) 73.2 % 05/17/22 17:11 Lymph % (Auto) 18.4 % 05/17/22 17:11 [place] % (Auto) 7.6 % 05/17/22 17:11 Eos % (Auto) 0.2 % 05/17/22 17:11 Baso % (Auto) 0.3 % 05/17/22 17:11 Neut # (Auto) 6.87 10^3/uL (1.8-7.7) 05/17/22 17:11 Lymph # (Auto) 1.7 10^3/uL (0.8-4.8) 05/17/22 17:11 [place] # (Auto) 0.7 10^3/uL (0.2-0.9) 05/17/22 17:11 Eos # (Auto) 0.0 10^3/uL (0.0-0.8) 05/17/22 17:11 Baso # (Auto) 0.0 10^3/uL (0.0-0.1) 05/17/22 17:11 Nucleated RBC % (auto) 0 % 05/17/22 17:11 Nucleated RBCs # 0.0 /100WBC 05/17/22 17:11 Sodium 137 mmol/L (136-145) 05/17/22 17:11 Carbon Dioxide 27 mmol/L (22-29) 05/17/22 17:11 BUN 9 mg/dL (6-20) 05/17/22 17:11 Creatinine 0.9 mg/dL (0.5-0.9) 05/17/22 17:11 Calcium 10.5 mg/dL (8.5-10.5) 05/17/22 17:11 Total Bilirubin 0.9 mg/dL (0.15-1.2) 05/17/22 17:11 AST 27 U/L (0-32) 05/17/22 17:11 Total Protein 8.2 g/dL (6.6-8.7) 05/17/22 17:11 Albumin 4.7 g/dL (3.5-5.2) 05/17/22 17:11 Globulin 3.5 g/dL (1.3-4.6) 05/17/22 17:11 Lipase 14 U/L (13-60) 05/17/22 17:11 HCG, Qual Negative (Negative) 05/17/22 16:27 Urine Color Dark yellow (Yellow) 05/17/22 16:27 Urine Appearance Clear (CLEAR) 05/17/22 16:27 Urine pH 5 (5-7) 05/17/22 16:27 Ur Specific [place] 1.025 (1.005-1.030) 05/17/22 16:27 Urine Protein 1+ (Negative) H 05/17/22 16:27 Urine Glucose (UA) Norm (Normal) 05/17/22 16:27 Urine Ketones 1+ (Negative) H 05/17/22 16:27 Urine Blood 2+ (Negative) H 05/17/22 16:27 Urine Nitrate Negative (Negative) 05/17/22 16:27 Urine Bilirubin 1+ (Negative) H 05/17/22 16:27 Urine Urobilinogen 1 mg/dL (Negative) H 05/17/22 16:27 Ur Leukocyte Esterase Negative (Negative) 05/17/22 16:27 Urine RBC 0-4 /hpf (0-2) H 05/17/22 16:27 Urine WBC 0-4 /hpf (0-5) H 05/17/22 16:27 Ur Squamous Epith Cells 5-10 /hpf (0-5) H 05/17/22 16:27 Amorphous Sediment Not Reportable 05/17/22 16:27 Urine Bacteria 1+ /hpf (NONE) H 05/17/22 16:27 Hyaline Casts 0-4 /lpf H 05/17/22 16:27 Urine Mucus 1+ /hpf 05/17/22 16:27 Discharge Plan Discharge Patient Disposition: Home Clinical Impression: Gastritis Condition: Stable Prescriptions: New Carafate 100 mg/mL suspension 1 g PO TID 28 Days Qty: 840 0RF No Action pimecrolimus 1 % cream 1 applic topical BID Qty: 60 6RF Rx Instructions: Apply twice daily to affected areas as needed spironolactone 25 mg tablet 25 mg PO DAILY Qty: 30 3RF Rx Instructions: Take one tablet daily adapalene 0.3 % gel 1 applic topical DAILY Qty: 45 6RF Rx Instructions: Apply pea-sized amount to clean dry face nightly clindamycin-benzoyl peroxide 1.2 %(1 % base) -5 % gel 1 applic topical DAILY Qty: 45 6RF Rx Instructions: Apply thin film to face, chest, and back every morning. May bleach clothes. norethindrone-e.estradiol-iron [10/16 (28)] 1 mg-20 mcg (21)/75 mg (7) tablet 1 tab PO DAILY amoxicillin 500 mg capsule 500 mg PO BID 10 Days Qty: 20 0RF cyanocobalamin (vitamin B-12) 1,000 mcg/mL kit 1,000 mcg IM ONCE Qty: 1 0RF Rx Instructions: monthly thyroid (pork) 90 mg tablet 90 mg PO DAILY Qty: 90 1RF triamcinolone acetonide 0.1 % cream 1 applic topical PRN PRN (Reason: Rash) betamethasone dipropionate 0.05 % ointment 1 applic topical PRN PRN (Reason: Rash) Discharge Orders: Discharge ED (Routine); Ordered 05/17/22 Ordered By: Tee Gregory Referrals: Gerry Lai FNP [Primary Care Provider] - Discharge Diet: Advance as tolerated Discharge Activity: Resume usual activity Patient Instructions: Opioid Safety Coding Level of Care Code ED Sr. Logistics Analyst for [employer] Fwd Exam Comprehensive
[2022-05-17 17:42] LABS: Alanine Aminotransferase 41 U/L (0-33); Albumin Level 4.7 g/dL (3.5-5.2); Alkaline Phosphatase 130 U/L (35-105); Aspartate Amino Transferase 27 U/L (0-32); Blood Urea Nitrogen 9 mg/dL (6-20); Calcium 10.5 mg/dL (8.5-10.5); Carbon Dioxide 27 mmol/L (22-29); Chloride 96 mmol/L (98-107); Globulin 3.5 g/dL (1.3-4.6); Glomerular Filtration Rate 72.1 mL/min (90-130); Glucose 116 mg/dL (65-115); Lipase 14 U/L (13-60); Osmolality Calculated 284 mOsm/kg (285-295); Sodium 137 mmol/L (136-145); Total Bilirubin 0.9 mg/dL (0.15-1.2); Total Protein 8.2 g/dL (6.6-8.7)
[2022-05-17 17:49] LABS: Anion Gap 18.1 (5-19)
[2022-05-17 17:50] LABS: Potassium 4.1 mmol/L (3.5-5.1)
[2022-05-17 18:04] VITALS: BP 153/99; PULSE 93; RESP 16; O2SAT 99
--- NOTE | 2022-05-19 09:10 | DCPLANNER ---
Addendum entered by Maricruz Gomez 05/22/22 11:57: Patient had a follow up appointment scheduled 05.22.22 with general surgery - patient did attend appointment. Original Note: brand strategy manager had message to schedule a follow up appointment for patient with general surgery. brand strategy manager sent patients information to the front office staff at general surgery. Patients information will be printed and reviewed. Clinic will call patient with appointment information.
== END 2022-05-17 18:06 | disposition home or self-care (01) ==
PROVIDERS: Physician Assistant; Emergency Provider Emergency Medicine; PCP Registered Nurse
DX: K29.70 Gastritis, unspecified, without bleeding (principal); Z87.891 Personal history of nicotine dependence
CPT/HCPCS: 80053; 81001; 81025; 83690; 85025; 99283

== ENCOUNTER 2022-06-10 08:58 | Day surgery (SDC) | payer BC, MEDICAID, SELFPAY ==
[2022-06-08 10:40] VITALS: BMI 35.5
[2022-06-10 09:50] VITALS: BP 140/88; PULSE 92; RESP 18; TEMP 36.3; O2SAT 96
[2022-06-10 09:54] LABS: OR HCG Qualitative Urine Negative (Negative)
--- NOTE | 2022-06-10 10:08 | ANES.PREANE2 ---
Pre-Anesthetic Assessment Height/Weight: Height 1.68 m Weight 99.79 kg Temp Pulse Resp BP Pulse Ox O2 Del Method 97.4 F L 92 18 140/88 96 06/10/22 09:50 06/10/22 09:50 06/10/22 09:50 06/10/22 09:50 06/10/22 09:50 06/10/22 09:50 Preop Diagnosis: Change in bowel habits and bleeding per rectum Operation Date: 06/10/22 10:30 Proposed Procedures p EGD(Not Applicable) - Kavon Novak DO Familial anesthetic complications: none Was Beta Jossy taken within 24 hours: N/A Was Clonidine taken within 24 hours: N/A Last intake: Intake Last Liquid Date 06/09/22 Last Liquid Time 21:00 Last Solid Date 06/09/22 Last Solid Time 21:00 Social No alcohol and No tobacco (h/o smoking) Exam alert, oriented x 3, clear to auscultation bilaterally and regular rate & rhythm Airway Submandibular: within normal limits Cervical ROM: within normal limits Mallampati: Class II Dentition: full GI Gastroesophageal Reflux Disease Metabolic Morbid Obesity and Thyroid Disease Anesthetic Plan ASA status: 2 Anesthesia: MAC Medications/Allergies Home Medications Medication Instructions Recorded Confirmed Last Taken Type thyroid (pork) 90 mg tablet 90 mg PO DAILY #90 tabs 01/16/22 06/08/22 Unknown Rx pantoprazole 40 mg tablet,delayed 40 mg PO BID 6 weeks #84 tabs 05/22/22 06/08/22 Unknown Rx release (Protonix) Allergies Allergy/AdvReac Type Severity Reaction Status Date / Time hydrocodone [From Vicodin] Allergy ADR-Nausea Verified 05/22/22 11:34 latex Allergy ALGY-Rash Verified 05/22/22 11:34 [facility] Anesthesia Medical History (Updated 05/25/22 @ 00:01 by ) Abscess of right breast associated with Daily wet-to-dry dressing change in the form of packing with mini Kerlix followed by ABDs and sports bra. We will follow on cultures and sensitivities, clinically I do not believe that the patient will require more antibiotics at this time, unless she developed worsening symptoms and surrounding cellulitis Colon polyp Depression Depression with anxiety GERD (gastroesophageal reflux disease) Hemorrhoids Surgical History History of breast surgery 2020 History of section Family History Father Diabetes Hypertension Mother Thyroid disease Hypertension Social History Smoking and tobacco status: former smoker Female Reproductive History Date of last menstrual period: 06/04/20 Data Anesthesia Cardiac Studies: No Data to Display
[2022-06-10] MEDS: sodium chloride 0.9% 1,000 ML 30 ML IV (10:26)
--- NOTE | 2022-06-10 10:26 | W.PM.OPSUD ---
Surgery/Procedure H&P Update DATE OF PROCEDURE: June 10, 2022 DATE H&P PERFORMED: 05/22/22 PREOP DIAGNOSIS: Abdominal pain PLANNED PROCEDURE: Operation Date: 06/10/22 10:30 Proposed Procedures p EGD(Not Applicable) - Kavon Novak DO
[2022-06-10 11:05] VITALS: BP 110/66; PULSE 98; RESP 16; TEMP 36.4; O2SAT 91
[2022-06-10 11:14] VITALS: BP 106/73; PULSE 95; RESP 18; O2SAT 94
--- NOTE | 2022-06-10 13:57 | ANE.PACU2 ---
Inpatient post-anesthesia follow up: Airway intact: Yes Vital signs: Temperature 97.5 F Pulse Rate 95 Respiratory Rate 18 Blood Pressure 106/73 Pulse Oximetry 94 Oxygen Delivery Me thod Room Air Oxygen Flow Rate Fraction of Inspir ed Oxygen Hydration adequate: Yes Nausea and vomiting: No Pain level: 1 Mental status: Baseline
== END 2022-06-10 11:30 | disposition home or self-care (01) ==
PROVIDERS: Anesthesiology; PCP Nurse Practitioner Family; Visit Provider Surgery
PROC: 0DJ08ZZ Inspection of Upper Intestinal Tract, Via Natural or Artificial Opening Endoscopic (ICD-10-PCS; CPT 43235; principal; 2022-06-10 10:30)
DX: K29.70 Gastritis, unspecified, without bleeding (principal); K21.9 Gastro-esophageal reflux disease without esophagitis; E66.01 Morbid (severe) obesity due to excess calories; Z68.35 Body mass index [BMI] 35.0-35.9, adult; Z87.891 Personal history of nicotine dependence; Z88.5 Allergy status to narcotic agent; Z91.040 Latex allergy status
CPT/HCPCS: 43239; 81025; 84703; 88305; J2704; J7030

== ENCOUNTER 2022-11-12 06:34 | Day surgery (SDC) | payer BC, MEDICAID, SELFPAY ==
[2022-11-11 08:24] VITALS: BMI 40.3
[2022-11-12] VITALS (16 sets, daily range): BP systolic 118–160; BP diastolic 55–98; PULSE 61–97; RESP 17–21; TEMP 36.1–36.4; O2SAT 94–100
[2022-11-12 07:08] LABS: OR HCG Qualitative Urine Negative (Negative)
[2022-11-12] MEDS: sodium chloride 0.9% 1,000 ML 30 ML IV (07:23)
--- NOTE | 2022-11-12 07:44 | PM.HP ---
Providers/Chief Complaint Primary Care Provider: Grace Osborn Chief Complaint: Gastro-esophageal reflux disease w/o esophagitis History of Present Illness Nicolasa Ny is a 32 year old female here for laparoscopic cholecystectomy Medications/Allergies Home Medications Medication Instructions Recorded Confirmed Last Taken Type pantoprazole 40 mg tablet,delayed 40 mg PO DAILY #30 tabs 09/08/22 11/12/22 1 Day Ago Rx release (Protonix) ~11/11/22 thyroid (pork) 90 mg tablet 120 mg PO DAILY 11/11/22 11/11/22 11/11/22 History Allergies Allergy/AdvReac Type Severity Reaction Status Date / Time hydrocodone [From Vicodin] Allergy ADR-Nausea Verified 11/12/22 07:01 latex Allergy ALGY-Rash Verified 11/12/22 07:01 PFSH Acute PFSH: Medical History Abscess of right breast associated with Daily wet-to-dry dressing change in the form of packing with mini Kerlix followed by ABDs and sports bra. We will follow on cultures and sensitivities, clinically I do not believe that the patient will require more antibiotics at this time, unless she developed worsening symptoms and surrounding cellulitis Colon polyp Depression Depression with anxiety GERD (gastroesophageal reflux disease) Hemorrhoids Surgical History History of breast surgery 2020 History of section Family History Father Diabetes Hypertension Mother Thyroid disease Hypertension Social History Smoking and tobacco status: former smoker Female Reproductive History: Date of last menstrual period: 10/28/22 Vitals/I&O/Wt Last Vital Signs Temp 97.5 F L 11/12/22 07:03 Pulse 73 11/12/22 07:03 Resp 18 11/12/22 07:03 BP 124/84 11/12/22 07:03 Pulse Ox 99 11/12/22 07:03 O2 Del Method 11/12/22 07:25 Weight last 48 hrs Weight 250 lb A&P Assessment and plan (1) Right upper quadrant pain: Right upper quadrant syndrome Plan Laparoscopic cholecystectomy Attestations Medical Necessity Statement*: Home Coding Level of Care Code Acute Code for Chg Fwd Diagnoses Right upper quadrant pain R10.11
[2022-11-12] MEDS: scopolamine 1.5 Patch 1 PATCH TRANSDERMA (07:45)
[2022-11-12] MEDS: ceFAZolin 2,000 MG in sodium chloride 0.9% (plus) 50 ML 100 MG IV (07:52)
--- NOTE | 2022-11-12 08:27 | P.OP_ITS ---
Operative Report Date of procedure: November 12, 2022 Pre-op diagnosis: Preop Diagnosis Right upper quadrant syndrome Post-op diagnosis: same Procedure done: Laparoscopic cholecystectomy Implants: None Specimens removed/disposition: Gallbladder Surgeon: Dr. Kavon Novak DO Anesthesia: General Estimated blood loss (mL): 5 Complications: None apparent Brief History: This is a very pleasant 32-year-old female who after an extensive work-up was diagnosed with right upper quadrant syndrome. Laparoscopic cholecystectomy was indicated. The risks and benefits were explained and documented. Procedure: Patient was wheeled into the operative room and placed on the OR table in a supine position. Abdomen was inspected prepped and draped in usual sterile fashion. Time-out was performed and all present were in agreement. A 15 blade scalp was used to make a stab incision in the left upper quadrant and intra- abdominal insufflation was achieved using a Veress needle. After localizing the tissue incisions were made and a 5 millimeter trocar was placed into the umbilicus as well as 2 in the right upper quadrant. A 12 millimeter trocar was placed in the epigastrium. Gallbladder was grasped and elevated. The triangle of Calot was carefully dissected using blunt dissection and electrocautery until the triangle of Calot clearly identified. The cystic duct was clipped proximally and double clipped distally. The duct was then ligated proximally. The cystic artery was doubly clipped and ligated. The gallbladder was then removed from the liver bed using electrocautery. The gallbladder was removed from the abdomen using an Endo-Catch bag through the epigastric incision. The liver bed was inspected and no bleeding was seen. The abdomen was irrigated and suctioned. All ports removed. Skin was washed and dried. Incisions were closed with 4-0 Monocryl in a subcuticular interrupted fashion. Skin glue was applied. Patient tolerated the procedure well.
--- NOTE | 2022-11-12 08:29 | ANES.PREANE2 ---
Pre-Anesthetic Assessment Height/Weight: Height 1.68 m Weight 113.398 kg Temp Pulse Resp BP Pulse Ox O2 Del Method 97.5 F L 73 18 124/84 99 11/12/22 07:03 11/12/22 07:03 11/12/22 07:03 11/12/22 07:03 11/12/22 07:03 11/12/22 07:25 Preop Diagnosis: Right upper quadrant syndrome Operation Date: 11/12/22 08:15 Proposed Procedures p lap karen 04759 K21.9(Not Applicable) - Kavon Novak DO Familial anesthetic complications: none Was Beta Jossy taken within 24 hours: N/A Was Clonidine taken within 24 hours: N/A Last intake: Intake Last Liquid Date 11/11/22 Last Liquid Time 17:30 Last Solid Date 11/11/22 Last Solid Time 17:30 Social No alcohol and No tobacco Exam alert, oriented x 3, clear to auscultation bilaterally and regular rate & rhythm Airway Submandibular: within normal limits Cervical ROM: within normal limits Mallampati: Class II Dentition: full GI Gastroesophageal Reflux Disease Metabolic Morbid Obesity and Thyroid Disease Anesthetic Plan ASA status: 2 Anesthesia: General Other: PONV? Medications/Allergies Home Medications Medication Instructions Recorded Confirmed Last Taken Type pantoprazole 40 mg tablet,delayed 40 mg PO DAILY #30 tabs 09/08/22 11/12/22 1 Day Ago Rx release (Protonix) ~11/11/22 thyroid (pork) 90 mg tablet 120 mg PO DAILY 11/11/22 11/11/22 11/11/22 History Allergies Allergy/AdvReac Type Severity Reaction Status Date / Time hydrocodone [From Vicodin] Allergy ADR-Nausea Verified 11/12/22 07:01 latex Allergy ALGY-Rash Verified 11/12/22 07:01 Current Medications Generic Name Dose Route Start Last Admin Trade Name Freq PRN Reason Stop Dose Admin Sodium Chloride 1,000 mls @ 30 mls/hr 11/11/22 12:15 11/12/22 07:23 Sodium Chloride 0.9% IV 11/12/22 12:14 30 mls/hr .Q24H RONIT Administration PFSH Anesthesia Medical History Abscess of right breast associated with Daily wet-to-dry dressing change in the form of packing with mini Kerlix followed by ABDs and sports bra. We will follow on cultures and sensitivities, clinically I do not believe that the patient will require more antibiotics at this time, unless she developed worsening symptoms and surrounding cellulitis Colon polyp Depression Depression with anxiety GERD (gastroesophageal reflux disease) Hemorrhoids Surgical History History of breast surgery 2020 History of section Family History Father Diabetes Hypertension Mother Thyroid disease Hypertension Social History Smoking and tobacco status: former smoker Female Reproductive History Date of last menstrual period: 10/28/22 Data Anesthesia Cardiac Studies: No Data to Display
[2022-11-12] MEDS: ondansetron 2 mg/ML SDV 2 mL 4 MG IVP (08:54)
[2022-11-12] MEDS: metoclopramide 5 mg/mL SDV 2 mL 10 MG IVP (09:17)
[2022-11-12] MEDS: diphenhydrAMINE 50 mg/mL SDV 1mL 12.5 MG IVP (09:26)
--- NOTE | 2022-11-12 10:47 | ECG_ITS ---
[facility] Test Date: 2022-11-12 Pat Name: Nicolasa Ny Department: Room: Gender: Female Director Digital Analytics: : 1990 Requested By: Jake Davies Order Number: [id number] Zenon MD: Sajan Goodman M.D. Measurements Intervals Guys Rate: 70 P: 67 HI: 155 QRS: 80 QRSD: 88 T: 30 QT: 367 QTc: 398 Interpretive Statements SINUS RHYTHM POSSIBLE RIGHT VENTRICULAR CONDUCTION DELAY [RSR (QR) IN V1/V2] NONSPECIFIC T-WAVE ABNORMALITY Compared to ECG 11/30/2016 14:08:25 No significant changes Electronically Signed On 11-12-2022 20:11:08 POLICE COMMISSIONER by Sajan Goodman M.D. [id number]
--- NOTE | 2022-11-12 18:10 | ANE.PACU2 ---
Inpatient post-anesthesia follow up: Airway intact: Yes Vital signs: Temperature 97 F Pulse Rate 72 Respiratory Rate 18 Blood Pressure 138/89 Pulse Oximetry 96 Oxygen Delivery Me thod Room Air Oxygen Flow Rate Fraction of Inspir ed Oxygen Hydration adequate: Yes Nausea and vomiting: Yes Pain level: 3 Mental status: Baseline Additional Comments: Difficult to treat N/V--droperidol
== END 2022-11-12 11:15 | disposition home or self-care (01) ==
PROVIDERS: Anesthesiology; PCP Nurse Practitioner Family; Visit Provider Surgery
PROC: 0FT44ZZ Resection of Gallbladder, Percutaneous Endoscopic Approach (ICD-10-PCS; CPT 47562; principal; 2022-11-12 08:15)
DX: K81.1 Chronic cholecystitis (principal); K21.9 Gastro-esophageal reflux disease without esophagitis; E66.01 Morbid (severe) obesity due to excess calories; Z68.41 Body mass index [BMI] 40.0-44.9, adult; Z87.891 Personal history of nicotine dependence
CPT/HCPCS: 47562; 81025; 84703; 88304; 93005; J0690; J1100; J1200; J1790; J1885; J2405; J2710; J2765; J3010; J3490; J7030

== ENCOUNTER 2024-10-05 11:06 | Outpatient (CLI) | payer BC, SELFPAY ==
--- NOTE | 2024-10-05 12:15 | US_ITS ---
WS: [id number] THYROID ULTRASOUND HISTORY: HYPOTHYROIDISM COMPARISON: None available. Right lobe: 0.9 cm x 1.2 cm x 3.6 cm (w x ap x l). Volume: 1.8 cm3. Normal size and echotexture. No significant are dominant nodules are present. Left lobe: 0.9 cm x 1.0 cm x 4.6 cm (w x ap x l). Volume: 1.9 cm3. Normal size and echotexture. No significant or dominant nodules are present. Isthmus: 0.3 cm. LEFT cervical chain lymph nodes maintain ovoid shape. Slightly heterogeneous measuring 2.1 x 1.5 x 0. 9 cm. Probably reactive lymph node. US/US thyroid [id number] IMPRESSION: Normal thyroid ultrasound.
== END 2024-10-05 11:07 | disposition home or self-care (01) ==
PROVIDERS: PCP Nurse Practitioner Family; Visit Provider Nurse Practitioner Family
DX: E03.9 Hypothyroidism, unspecified (principal); R59.0 Localized enlarged lymph nodes
CPT/HCPCS: 76536

== ENCOUNTER 2025-03-01 08:16 | Outpatient (CLI) | payer BC, SELFPAY ==
--- NOTE | 2025-03-01 08:21 | US_ITS ---
WS: [id number] RIGHT UPPER QUADRANT ULTRASOUND HISTORY: RUQ ABD PAIN/NAUSEA W/VOMITING/DIARRHEA COMPARISON: 06/09/2020 Liver: 13.8 cm in length. Normal size liver and echogenicity. No bile duct dilatation or mass. Portal Vein: Normal hepatopetal flow with monophasic waveform. Gallbladder: Prior cholecystectomy. CBD: 0.5 cm Pancreas: Not visualized. Right kidney: 9.8 cm in length. Normal size and echogenicity. No hydronephrosis or mass. Aorta and IVC: Unremarkable abdominal aorta and IVC. No ascites. US/US abdomen limited [id number] IMPRESSION: 1. Prior cholecystectomy. 2. No intrahepatic duct dilatation. 3. Negative liver.
== END 2025-03-01 08:17 | disposition home or self-care (01) ==
PROVIDERS: PCP Nurse Practitioner Family; Visit Provider Nurse Practitioner
DX: R11.2 Nausea with vomiting, unspecified (principal); R10.11 Right upper quadrant pain; R19.7 Diarrhea, unspecified; Z90.49 Acquired absence of other specified parts of digestive tract
CPT/HCPCS: 76705